=== PATIENT | female | born 1945 | race Caucasian/White ===

== ENCOUNTER 2020-12-08 00:03 | Emergency (ER) | payer MEDICARE, SELFPAY ==
--- NOTE | ~2020-12-08 | XR_ITS ---
EXAMINATION: XR HIP, LEFT CLINICAL INFORMATION: Fall with pain COMPARISON: None TECHNIQUE: Two views of the left hip. Frontal view of the pelvis. FINDINGS: There is no fracture or dislocation. The hips are well aligned. Mild degenerative changes of the hips with subchondral sclerosis present. The pelvic rim is intact. The sacroiliac joints and pubic symphysis are intact. XR/XR hip LT w PEL1V IMPRESSION: No fracture or malalignment.
--- NOTE | ~2020-12-08 | CT_ITS ---
EXAMINATION: CT LUMBAR SPINE WITHOUT CONTRAST CT SACRUM WITHOUT CONTRAST CLINICAL INFORMATION: Fall with pain COMPARISON: Radiograph from today TECHNIQUE: Multidetector volumetric imaging of the lumbar spine and sacrum is performed without IV contrast. Coronal and sagittal reformatted images are obtained and reviewed. This CT examination was performed using dose optimization techniques as appropriate, variously including the following: *Automated exposure control *Adjustment of mA and/or kV according to patient size (this includes techniques or standardized protocols for targeted exams where dose is matched to indication/reason for exam; i.e. extremities or head) *Use of iterative reconstruction technique DLP; 333 mGy-cm FINDINGS: Osteopenia. There is a nondisplaced right sacral fracture. This spans through the S2 level. The sacroiliac joints are symmetric. Vertebral body height maintained. Grade 1 anterolisthesis of L4 on L5 appearing degenerative. Facet arthropathy throughout. Mild L4-L5 disc space narrowing. Tiny multilevel endplate osteophytes. No acute fracture of the lumbar spine. No acute abnormality of the visualized intra-abdominal and intrapelvic structures. CT/CT lumbar spine wo con IMPRESSION: Nondisplaced right sacral fracture through the S2 level. Mild degenerative changes of the lumbar spine.
--- NOTE | ~2020-12-08 | CT_ITS ---
EXAMINATION: CT CHEST WITHOUT CONTRAST CLINICAL INFORMATION: Fall with pain COMPARISON: None TECHNIQUE: Multidetector volumetric CT imaging of the chest was done. Axial MIP volume rendering provided. Sagittal and coronal reformatted images were obtained. This CT examination was performed using dose optimization techniques as appropriate, variously including the following: *Automated exposure control *Adjustment of mA and/or kV according to patient size (this includes techniques or standardized protocols for targeted exams where dose is matched to indication/reason for exam; i.e. extremities or head) *Use of iterative reconstruction technique DLP: 150 mGy-cm FINDINGS: STAPLE SIDE LASTER: Unremarkable. LUNGS: The central airways are patent. Mild centrilobular emphysema. Pleural thickening/scarring at the lung apices. Mild bronchiectasis of the lower lobes. No bronchial wall thickening or filling defect. No dense consolidation. No pneumothorax. MEDIASTINUM: Normal heart size. No pericardial effusion. No mediastinal lymphadenopathy. The thyroid gland is unremarkable. PLEURA: There is no pleural effusion. No pleural mass or thickening. AXILLA: No lymphadenopathy. UPPER ABDOMEN: Hypoattenuating lesions are seen in the kidneys likely representing simple cysts. No follow-up imaging recommended. OSSEOUS STRUCTURES: No acute or suspicious osseous abnormality. Vertebral body height and alignment is maintained. Disc spaces are maintained. The ribs are intact. CT/CT chest wo con IMPRESSION: No acute traumatic findings of the chest. Mild chronic change of the lungs.
--- NOTE | ~2020-12-08 | CT_ITS ---
EXAMINATION: CT HEAD WITHOUT CONTRAST CLINICAL INFORMATION: Fall. COMPARISON: None TECHNIQUE: Contiguous axial imaging was performed from the skull base to vertex without intravenous administration of contrast. This CT examination was performed using dose optimization techniques as appropriate, variously including the following: *Automated exposure control *Adjustment of mA and/or kV according to patient size (this includes techniques or standardized protocols for targeted exams where dose is matched to indication/reason for exam; i.e. extremities or head) *Use of iterative reconstruction technique DLP: 623 mGy-cm FINDINGS: There is no evidence of acute intracranial hemorrhage or edematous territorial infarction. Scattered hypoattenuation in the periventricular and deep white matter are consistent with moderate microangiopathy. [place]-white matter differentiation is preserved. Proportional prominence of the ventricles and sulcal spaces. No evidence for obstructive hydrocephalus. No abnormal mass effect or midline shift. No extra-axial fluid collections. No acute soft tissue or osseous abnormalities. The mastoid air cells and paranasal sinuses are clear. CT/CT head/brain wo con IMPRESSION: No evidence of acute intracranial hemorrhage or edematous territorial infarction.
--- NOTE | ~2020-12-08 | CT_ITS ---
EXAMINATION: CT LUMBAR SPINE WITHOUT CONTRAST CT SACRUM WITHOUT CONTRAST CLINICAL INFORMATION: Fall with pain COMPARISON: Radiograph from today TECHNIQUE: Multidetector volumetric imaging of the lumbar spine and sacrum is performed without IV contrast. Coronal and sagittal reformatted images are obtained and reviewed. This CT examination was performed using dose optimization techniques as appropriate, variously including the following: *Automated exposure control *Adjustment of mA and/or kV according to patient size (this includes techniques or standardized protocols for targeted exams where dose is matched to indication/reason for exam; i.e. extremities or head) *Use of iterative reconstruction technique DLP; 333 mGy-cm FINDINGS: Osteopenia. There is a nondisplaced right sacral fracture. This spans through the S2 level. The sacroiliac joints are symmetric. Vertebral body height maintained. Grade 1 anterolisthesis of L4 on L5 appearing degenerative. Facet arthropathy throughout. Mild L4-L5 disc space narrowing. Tiny multilevel endplate osteophytes. No acute fracture of the lumbar spine. No acute abnormality of the visualized intra-abdominal and intrapelvic structures. CT/CT sacrum IMPRESSION: Nondisplaced right sacral fracture through the S2 level. Mild degenerative changes of the lumbar spine.
--- NOTE | 2020-12-08 00:12 | ECG_ITS ---
Test Reason : FALL Blood Pressure : / mmHG Vent. Rate : 095 BPM Atrial Rate : 095 BPM P-R Int : 148 ms QRS Dur : 072 ms QT Int : 354 ms P-R-T Axes : 083 059 054 degrees QTc Int : 444 ms Normal sinus rhythm Minimal voltage criteria for LVH, may be normal variant Borderline ECG No previous ECGs available Referred By: Mary Rice Electronically Signed By:SARAVANAN SOSA
[2020-12-08 00:14] VITALS: BP 145/59; BP 157/69; PULSE 100; PULSE 81; RESP 18; TEMP 35.9; O2SAT 96; O2SAT 99; BMI 19.8
--- NOTE | 2020-12-08 00:56 | ED_ITS ---
HPI - Fall General Chief Complaint: Fall Stated Complaint: fall (-LOC/thinners) Time Seen by Provider: 12/08/20 00:11 Source: patient Mode of arrival: ambulatory Limitations: physical limitation (Walker) History of Present Illness HPI Narrative: 75-year-old female with history of cerebral palsy and currently on anticoagulation who states that she sustained a mechanical fall earlier this evening with she was at her kitchen sink and the walker kept moving causing her to turn and slide down her back against the counter falling on her buttocks. She denies any head strike or loss of consciousness and denies any recent fever, chills, shortness of breath, chest pain/palpitations, urinary pain/burning/frequency. Patient states that she attempted to get up but was having some difficulty and activated her Life Alert. She does describe some sacral and left tuberosity pain. Related Data Allergies Allergy/AdvReac Type Severity Reaction Status Date / Time No Known Allergies Allergy Unverified 12/08/20 00:11 Review of Systems Review of Systems: Pertinent positives and negatives as stated in HPI 10 point review of systems is otherwise negative. [facility] Past Medical History Source: nursing notes reviewed Medical History Cerebral palsy Social History Social History Alcohol intake: never Patient Tobacco Use Status: Never used Tobacco Use of substances other than those prescribed or required for medical reasons: No Advance Directives: No Physical Exam Vital Signs: Vital Signs: Last Vital Signs Temp 96.7 F L 12/08/20 00:14 Pulse 100 12/08/20 00:14 Resp 18 12/08/20 00:14 BP 157/69 H 12/08/20 00:14 Pulse Ox 99 12/08/20 00:14 Body Mass Index 19.8 VITAL SIGNS: Reviewed. GENERAL: Elderly, cachectic, in no acute distress. HEAD: Normocephalic/atraumatic, EYES: PERRLA, EOMI EARS: Ext canals without abnormality NOSE: Nares patent bilateral OROPHARYNX: no oral lesions noted, posterior pharynx clear and non-erythematous without noted tonsillar enlargement/erythema/exudates NECK: Supple, no adenopathy, no midline cervical spine tenderness on palpation. LUNGS: Normal breath sounds. No adventitious sounds or accessory muscle use. SpO2<99> CARDIOVASCULAR: Regular rate and rhythm without noted murmurs, no JVD or lower extremity edema. ABDOMEN: Soft, non-tender, non-distended with bowel sounds, pelvis stable BACK: No step-offs noted and no tenderness on palpation down midline vertebra MUSCULOSKELETAL: No tenderness, deformities, or effusions noted on gross inspec tion. EXTREMITIES: No cyanosis, clubbing or edema, slight redness without deformity or edema to bilateral knees. SKIN: Inspection of the skin reveals no rashes NEUROLOGIC: Alert and oriented x 4. Strength and sensation to light touch were grossly intact x 4. Course Course Course Narrative: 75-year-old female with history and clinical presentation consistent with mechanical fall but will evaluate for any etiology of infection or anemia. Review of all investigations negative for acute findings and the noted mild leukocytosis consistent with stress response. Patient informed of all results a nd findings and discharged home in stable condition with instructions follow-up with primary care provider on Wednesday morning. MDM - Fall Lab Data Result diagrams: 12/08/20 00:48 12/08/20 00:48 Labs: Lab Results 12/08/20 12/08/20 12/08/20 Range/Units 00:48 00:48 00:48 WBC 11.2 H (4.8-10.8) X10*3/uL RBC 4.23 (4.20-5.50) X10*6/uL Hgb 12.4 (12.0-16.0) g/dl Hct 37.6 (37-47) % MCV 88.9 (80-98) fL MCH 29.3 (27.0-33.0) pg MCHC 33.0 (31.0-35.0) g/dl RDW 13.8 (11.0-16.0) % Plt Count 157 L (160-400) X10*3/uL MPV 10.8 (9.4-12.3) fL Immature Gran % (Auto) 0.5 H (0.0-0.4) % Neut % (Auto) 85.5 H (45-73) % Lymph % (Auto) 6.2 L (20-40) % [place] % (Auto) 7.7 (2-11) % Eos % (Auto) 0.0 (0-4) % Baso % (Auto) 0.1 (0-2) % Lymph # (Auto) 0.7 L (1.2-4.9) X10*3/uL [place] # (Auto) 0.9 (0.1-1.2) X10*3/uL Eos # (Auto) 0.0 (0.0-0.4) X10*3/uL Baso # (Auto) 0.0 (0.0-0.2) X10*3/uL Abs Immat Gran (auto) 0.06 H (0.00-0.03) X10*3/uL Absolute Neuts (auto) 9.6 H (2.0-8.3) X10*3/uL Absolute Nucleated RBC 0.000 (0.0-0.012) X10*3/uL Nucleated RBC % (auto) 0.0 (0.0-0.2) /100WBC PT 11.6 (9.9-13.0) SEC INR 1.0 (0.9-1.1) Sodium 141 (135-145) mmol/L Potassium 3.6 (3.3-5.1) mmol/L Chloride 106 (96-108) mmol/L Carbon Dioxide 27 (22-29) mmol/L Anion Gap 12 (12-20) BUN 23 H (9-16) mg/dL Creatinine 0.79 (0.5-1.4) mg/dL Estim Creat Clear Calc 45.5 Estimated GFR > 60 Random Glucose 126 H (60-115) mg/dL Calcium 9.1 (8.4-10.2) mg/dL Total Bilirubin 0.5 (0.0-1.0) mg/dL AST 24 (5-31) U/L ALT 23 (0-31) U/L Alkaline Phosphatase 75 (39-117) U/L Total Protein 6.4 L (6.5-8.0) g/dL Albumin 4.0 (3.5-5.0) g/dL Urine Color Urine Appearance Urine pH (5.0-8.0) Ur Specific [place] (1.005-1.025) Urine Protein (NEG-TRACE) MG/DL Urine Glucose (UA) (NEG) MG/DL Urine Ketones (NEG) MG/DL Urine Blood (NEG) Urine Nitrite (NEG) Ur Leukocyte Esterase (NEG) Urine RBC (0) /HPF Urine WBC (0-4) /HPF Ur Squamous Epith Cells /LPF Urine Bacteria /LPF 12/08/20 Range/Units 01:33 WBC (4.8-10.8) X10*3/uL RBC (4.20-5.50) X10*6/uL Hgb (12.0-16.0) g/dl Hct (37-47) % MCV (80-98) fL MCH (27.0-33.0) pg MCHC (31.0-35.0) g/dl RDW (11.0-16.0) % Plt Count (160-400) X10*3/uL MPV (9.4-12.3) fL Immature Gran % (Auto) (0.0-0.4) % Neut % (Auto) (45-73) % Lymph % (Auto) (20-40) % [place] % (Auto) (2-11) % Eos % (Auto) (0-4) % Baso % (Auto) (0-2) % Lymph # (Auto) (1.2-4.9) X10*3/uL [place] # (Auto) (0.1-1.2) X10*3/uL Eos # (Auto) (0.0-0.4) X10*3/uL Baso # (Auto) (0.0-0.2) X10*3/uL Abs Immat Gran (auto) (0.00-0.03) X10*3/uL Absolute Neuts (auto) (2.0-8.3) X10*3/uL Absolute Nucleated RBC (0.0-0.012) X10*3/uL Nucleated RBC % (auto) (0.0-0.2) /100WBC PT (9.9-13.0) SEC INR (0.9-1.1) Sodium (135-145) mmol/L Potassium (3.3-5.1) mmol/L Chloride (96-108) mmol/L Carbon Dioxide (22-29) mmol/L Anion Gap (12-20) BUN (9-16) mg/dL Creatinine (0.5-1.4) mg/dL Estim Creat Clear Calc Estimated GFR Random Glucose (60-115) mg/dL Calcium (8.4-10.2) mg/dL Total Bilirubin (0.0-1.0) mg/dL AST (5-31) U/L ALT (0-31) U/L Alkaline Phosphatase (39-117) U/L Total Protein (6.5-8.0) g/dL Albumin (3.5-5.0) g/dL Urine Color YELLOW Urine Appearance CLEAR Urine pH 7.0 (5.0-8.0) Ur Specific [place] 1.015 (1.005-1.025) Urine Protein 1+ H (NEG-TRACE) MG/DL Urine Glucose (UA) NEG (NEG) MG/DL Urine Ketones 5 (NEG) MG/DL Urine Blood NEG (NEG) Urine Nitrite NEG (NEG) Ur Leukocyte Esterase NEG (NEG) Urine RBC 1-4 (0) /HPF Urine WBC 1-4 (0-4) /HPF Ur Squamous Epith Cells 1+ /LPF Urine Bacteria 1+ /LPF ECG Data Attestation: I personally reviewed and interpreted this ECG as follows: Prior ECG tracings: not available for review Interpretation: Normal sinus rhythm, HR-95, no STEMI, [place]/QRS/QTC are within normal limits. Discharge Plan Discharge Clinical Impression: Accident due to mechanical fall without injury Patient Disposition: Home, Self-Care Instructions: Fall Prevention for Older Adults (ED) Additional Instructions: 1. Resume all home medications as prescribed. 2. Increase water intake. 3. Follow-up with your primary care provider on Wednesday morning for re-evaluation and further outpatient management. Return to the ER for acute worsening of symptoms.
[2020-12-08 01:02] LABS: MANUAL DIFF FLAG NO
[2020-12-08 01:03] LABS: Basophils Percent Auto 0.1 % (0-2); Hematocrit 37.6 % (37-47); Hemoglobin 12.4 g/dl (12.0-16.0); Imm Gran Abs Auto 0.06 X10*3/uL (0.00-0.03); Imm Gran Pct Auto 0.5 % (0.0-0.4); Lymphocytes Absolute Auto 0.7 X10*3/uL (1.2-4.9); Lymphocytes Percent Auto 6.2 % (20-40); Mean Corpuscular Hemoglobin 29.3 pg (27.0-33.0); Mean Corpuscular Volume 88.9 fL (80-98); Mean Platelet Volume 10.8 fL (9.4-12.3); Monocytes Absolute Auto 0.9 X10*3/uL (0.1-1.2); Monocytes Percent Auto 7.7 % (2-11); Neutrophils Absolute Auto 9.6 X10*3/uL (2.0-8.3); Neutrophils Percent Auto 85.5 % (45-73); Platelet Count 157 X10*3/uL (160-400); Red Blood Count 4.23 X10*6/uL (4.20-5.50); Red Cell Distribution Width 13.8 % (11.0-16.0); White Blood Count 11.2 X10*3/uL (4.8-10.8)
[2020-12-08 01:08] LABS: Prothrombin Time 11.6 SEC (9.9-13.0)
[2020-12-08 01:26] LABS: Alanine Aminotransferase 23 U/L (0-31); Alkaline Phosphatase 75 U/L (39-117); Anion Gap 12 (12-20); Aspartate Amino Transferase 24 U/L (5-31); Bilirubin Total 0.5 mg/dL (0.0-1.0); Blood Urea Nitrogen 23 mg/dL (9-16); Calcium 9.1 mg/dL (8.4-10.2); Carbon Dioxide 27 mmol/L (22-29); Chloride 106 mmol/L (96-108); Creatinine Clr Calc Pharmacy 45.5; Estimated Glomerular Filt Rate > 60; Glucose Random 126 mg/dL (60-115); Potassium 3.6 mmol/L (3.3-5.1); Sodium 141 mmol/L (135-145); Total Protein 6.4 g/dL (6.5-8.0)
[2020-12-08 01:38] LABS: Appearance Urine CLEAR; Color Urine YELLOW; Glucose Urine UA NEG (NEG); Leukocyte Esterase Urine NEG (NEG); Nitrite Urine NEG (NEG); Specific Gravity - Urine 1.015 (1.005-1.025); UACC Culture Trigger NO; Urine Blood NEG (NEG); Urine Ketones 5 MG/DL (NEG); Urine Protein 1+ MG/DL (NEG-TRACE)
[2020-12-08 01:46] LABS: Bacteria Urine 1+ /LPF; Squamous Epithelial Cell Urine 1+ /LPF
[2020-12-08 06:30] LABS: COVID-19 Test Negative (Negative); IDNOW Serial# 9DD0AD1C
[2020-12-08] MEDS: Acetaminophen 325 MG TABLET 975 MG PO (06:30)
[2020-12-08] MEDS: Ibuprofen 400 MG TABLET PO (06:30)
[2020-12-08 07:54] VITALS: BP 138/53; PULSE 83; RESP 18; O2SAT 97
--- NOTE | 2020-12-08 07:56 | PC.NURSE ---
PT MOVED FROM 13H TO ED 21 DUE TO NEEDING PT EVAL AND CASEMANAGEMENT FOR REHAB PLACEMENT DUE TO SACRAL FRACTURE
[2020-12-08 11:18] VITALS: BP 161/55; PULSE 75; O2SAT 96
--- NOTE | 2020-12-08 12:11 | PC.NURSE ---
attempted to complete med rec on PT, she reports she does not take any regular medications at home
--- NOTE | 2020-12-08 12:31 | MHC.CM.ED ---
Received consult for assessment of d/c needs: pt presented from home with falls: feels pt is weak and unsteady: Pt very vague, slow to answer, forgets information and seems to have delays with recall ability: She states she resides at the [facility] and is Independent with care needs. She uses a walker and has transportation provided by the residence. She notes her PCP is someone new that replaced Dr. Neri but hasn't seen anyone in over a year. She acknowledged having a community facilitator named Susi but couldn't recall her last name, contact information or agency affiliation. Pt does not have any services but does have someone who assists her with laundry. She could not identify a next of contact only to say it's a sister who lives on the same wing Pt does not have a HCP and didn't wish to complete one. She also stated she was not COVID vaccinated d/t adverse reactions to steroids. NKA is listed on her EMR. Pt very weakened: had difficulty rolling on side to use the bedpan and complained of back discomfort and overall weakness. She is receptive to waiting until Wednesday for a PT eval but is unsure if she would agree to STR. I'd rather not, I have a nice place. Call placed to [facility] at [phone] : left VM for immigration manager to f/u on 12/09: ED CM to await PT eval for assistance with determining physical abilities/safety for return to home: ? needing STR however, without vaccination or HCP/NOK, this will be a difficult endeavor. Will defer STR referrals until more information can be obtained either from Susi, her mysterious sister neighbor, or through PT eval.
--- NOTE | 2020-12-08 21:55 | PC.NURSE ---
pt incontinent of urine and stool after being placed on a bed [place]. pt cleaned and changed into maicol [facility]
[2020-12-09] VITALS: BP 180/70; PULSE 87; RESP 16; TEMP 36.8; O2SAT 100
[2020-12-09 00:04] VITALS: BP 180/70; PULSE 84; RESP 16; TEMP 36.8
[2020-12-09 00:06] VITALS: BP 180/70; PULSE 84; RESP 16; TEMP 36.8
[2020-12-09 05:37] VITALS: BP 182/77; PULSE 87; RESP 18; O2SAT 96
[2020-12-09] MEDS: oxyCODONE HCl Immed Release 5 MG TABLET PO (07:16)
[2020-12-09 07:32] VITALS: PULSE 87; O2SAT 96
--- NOTE | 2020-12-09 07:42 | PC.NURSE ---
pt unable to get up with PT. crying out in pain when PT get her to the edge of the bed. Pt back in bed laying down, head of bed down. A&Ox2.
--- NOTE | 2020-12-09 09:29 | PC.NURSE ---
pt attempting to get out of stretcher, stating i need to stand up . pt reminded she cannot stand up even with PT helping. Pt moved into a recliner with two assist. pt slightly to her left side. sitter in reach.
--- NOTE | 2020-12-09 09:49 | MHC.CM.ED ---
Addendum entered by Nikia Carrero 12/09/20 14:43: Received telephone call from [employer] le[employer] property manager. Patient lives in senior independent living. They have no medical or contact information for their residents. Original Note: Patient remains in ER. Physical therapy eval completed. Short term rehab is recommended. Since patient has not received any Covid vaccines, she will be difficult to place. Referral broadcasted within 20 miles of her residence. Continue to monitor for d/c needs.
--- NOTE | 2020-12-09 14:04 | MHC.CM.ED ---
[facility] is only facility to offer a bed. Patient was hoping to go home but is agreeable to accept bed at [facility] at this time. [facility] will try to obtain insurance auth. Patient's PCP was Dr Gross. Her new PCP is Dr Quiana Pineda. She had an appointment on 12/[address] Pineda's office has no HCP or demographic information on her. Will need a HCP in order to go to [facility]. Continue to monitor for d/c needs.
--- NOTE | 2020-12-09 14:47 | MHC.CM.ED ---
Addendum entered by Nikia Carrero 12/09/20 15:39: Received telephone call from Liza. Patient's emergency contact is Sister Edyta Nunez. She is patient's neighbor and can be reached via telephone at [phone]. Spoke with Sister Edyta. Updated i. Sister Edyta thinks she is patient's HCP, but doesn't know where a copy of it would be. Original Note: Patient is active with [facility]. Susi is the counseling case manager. Susi is not in the office today. Left a message for Liza at [facility], requesting a return telephone call.
[2020-12-09 16:34] VITALS: BP 180/70; PULSE 78; RESP 14; O2SAT 95
--- NOTE | 2020-12-09 17:11 | MHC.CM.ED ---
Bladimir at [facility] has obtained authorization. Pt agreeable to D/C . Ambulance booked for 5:30. Script for narcotic given to RN. RN and MD aware. HCP completed, reviewed and signed. HCP Sister Edyta Nunez ([phone]). Copies given and uploaded into [facility] and [facility]. CM to follow for d/c needs.
== END 2020-12-09 18:39 | disposition home or self-care (01) ==
PROVIDERS: Emergency Provider Student in an Organized Health Care Education/Training Program
DX: S39.92XA Unspecified injury of lower back, initial encounter (principal); G44.309 Post-traumatic headache, unspecified, not intractable; M54.6 Pain in thoracic spine; R10.2 Pelvic and perineal pain; M25.552 Pain in left hip; W01.0XXA Fall on same level from slipping, tripping and stumbling without subsequent striking against object, initial encounter; Y93.9 Activity, unspecified; Y92.9 Unspecified place or not applicable; Y99.9 Unspecified external cause status; Z20.822 Contact with and (suspected) exposure to COVID-19; Z79.899 Other long term (current) drug therapy
CPT/HCPCS: 36415; 70450; 71250; 72131; 72192; 73502; 80053; 81001; 85025; 85610; 87635; 93005; 97162; 99285

== ENCOUNTER 2021-01-16 08:35 | Outpatient (REF) | payer MEDICARE, SELFPAY | END 2021-01-16 08:36 | disposition home or self-care (01) | LOC: HO.HOSX 08:35 | PROVIDERS: Visit Provider Physician Assistant | DX: Z13.89 Encounter for screening for other disorder (principal) ==

== ENCOUNTER 2021-08-28 09:03 | Emergency (ER) | payer MEDICARE, SELFPAY ==
--- NOTE | ~2021-08-28 | CT_ITS ---
EXAMINATION: CT HEAD WITHOUT CONTRAST CLINICAL INFORMATION: Altered mental status. COMPARISON: Head CT scan dated 12/08/2020. TECHNIQUE: Contiguous axial imaging was performed from the skull base to vertex without intravenous administration of contrast. Coronal and sagittal reformatted images were obtained. This CT examination was performed using dose optimization techniques as appropriate, variously including the following: *Automated exposure control *Adjustment of mA and/or kV according to patient size (this includes techniques or standardized protocols for targeted exams where dose is matched to indication/reason for exam; i.e. extremities or head) *Use of iterative reconstruction technique DLP: 570 mGy-cm FINDINGS: There is mild widening of the cortical sulci and associated ventriculomegaly. The lateral ventricles are symmetrical. The third and fourth ventricles are in their normal midline position. The basilar and prepontine cisterns are unremarkable. There is no acute intra or extracerebral abnormality. There is no mass effect or midline shift. Sections through the bony calvarium are unremarkable. The orbits are intact. The paranasal sinuses are clear. The mastoid air cells are clear. Moderate mid nasal septal deviation with moderate apical spur significant narrowing the nasal canal the level without significant change. CT/CT head/brain wo con IMPRESSION: No acute intracranial pathology.
--- NOTE | ~2021-08-28 | XR_ITS ---
EXAMINATION: XR CHEST CLINICAL INFORMATION: Altered mental status and weakness COMPARISON: CT chest 12/08/2020 TECHNIQUE: 2 views of the chest were obtained. FINDINGS: Lungs are hyperinflated consistent with emphysematous changes that were better characterized on the prior chest CT. Heart size normal. No infiltrates, effusions or lung masses are seen. XR/XR chest 2V IMPRESSION: COPD. No acute intrathoracic disease
--- NOTE | 2021-08-28 09:15 | ECG_ITS ---
Test Reason : ams Blood Pressure : / mmHG Vent. Rate : 087 BPM Atrial Rate : 087 BPM P-R Int : 148 ms QRS Dur : 076 ms QT Int : 380 ms P-R-T Axes : 085 073 070 degrees QTc Int : 457 ms Normal sinus rhythm Minimal voltage criteria for LVH, may be normal variant ( Sokolow-Gloria ) Septal infarct , age undetermined Abnormal ECG When compared with ECG of 08-DEC-2020 00:36, Septal infarct is now Present Referred By: Carolina Miranda Electronically Signed By:NANETTE AN MD
--- NOTE | 2021-08-28 09:15 | ED.GENADULT ---
HPI - General Adult General Chief complaint: Altered Mental Status <EDITH Francisco Last Filed: 08/28/21 15:12> Stated complaint: MENTAL STATUS CHANGES <EDITH Francisco Last Filed: 08/28/21 15:12> Time Seen by Provider: 08/28/21 09:15 <EDITH Francisco Last Filed: 08/28/21 15:12> Source: patient and EMS <EDITH Francisco Last Filed: 08/28/21 15:12> Mode of arrival: EMS <EDITH Francisco Last Filed: 08/28/21 15:12> Limitations: altered mental status <EDITH Francisco Last Filed: 08/28/21 15:12> History of Present Illness HPI narrative: Patient is a 76 year old female presenting to the emergency department today with altered mental status. EMS states that the patient had a mechanical fall this morning and was seen at [facility] for that and discharged back home. Patient's visiting nurse statse that the patient is much more confused and she does not believe the patient to be safe at home alone anymore. Patient denies any dizziness, lightheadedness, abdominal pain, nausea, vomiting, fever, chills, blurry vision, double vision, loss of vision, chest pain, difficulty breathing, shortness of breath, back pain, night sweats, pain with urination, increased urinary frequency, increased urinary urgency, blood in her urine or stool, syncope or a near syncopal episode, bowel incontinence, bladder incontinence, bowel retention, bladder retention, or any other complaints at this time. <EDITH Francisco Last Filed: 08/28/21 15:12> Onset (ago): hour(s) <EDITH Francisco Last Filed: 08/28/21 15:12> Severity: mild <EDITH Francisco Last Filed: 08/28/21 15:12> Relieving factors: none <EDITH Francisco Last Filed: 08/28/21 15:12> Exacerbating factors: none <EDITH Francisco Last Filed: 08/28/21 15:12> Associated symptoms: denies other symptoms <EDITH Francisco Last Filed: 08/28/21 15:12> Treatments prior to arrival: none <EDITH Francisco Last Filed: 08/28/21 15:12> Related Data Home medications: Previous Rx's Medication Instructions Recorded oxycodone 5 mg tablet 5 mg PO Q6H PRN pain #14 tabs 12/09/20 <EDITH Francisco Last Filed: 08/28/21 15:12> Allergies/adverse reactions: Allergies Allergy/AdvReac Type Severity Reaction Status Date / Time No Known Allergies Allergy Unverified 12/08/20 00:11 <EDITH Francisco - Last Filed: 08/28/21 15:12> Review of Systems Constitutional: Constitutional: Reports no additional constitutional complaints, Denies chills, Denies fever(s) and Denies night sweats <EDITH Francisco - Last Filed: 08/28/21 15:12> Eyes: Eyes: Reports no additional eye complaints, Denies blurry vision, Denies change in vision, Denies diplopia, Denies eye discharge, Denies loss of vision and Denies eye pain <EDITH Francisco - Last Filed: 08/28/21 15:12> ENT: Denies dizziness <EDITH Francisco - Last Filed: 08/28/21 15:12> Cardiovascular: Cardiovascular: Reports no additional cardiovascular complaints, Denies chest pain, Denies lightheadedness, Denies Loss of Consciousness and Denies dyspnea <EDITH Francisco - Last Filed: 08/28/21 15:12> Respiratory: Respiratory: Reports no additional respiratory complaints and Denies dyspnea <EDITH Francisco - Last Filed: 08/28/21 15:12> Gastrointestinal: Gastrointestinal: Reports no additional gastrointestinal complaints, Denies abdominal pain, Denies melena, Denies hematochezia, Denies change in bowel habits and Denies change in stool character <EDITH Francisco - Last Filed: 08/28/21 15:12> Genitourinary: Genitourinary: Denies hematuria, Denies urinary frequency, Denies dysuria, Denies urinary incontinence, Denies urinary hesitancy and Denies urinary urgency <EDITH Francisco Last Filed: 08/28/21 15:12> Musculoskeletal: Musculoskeletal: Reports no additional musculoskeletal complaints, Denies numbness and Denies tingling <EDITH Francisco - Last Filed: 08/28/21 15:12> Neurologic: Reports confusion, Denies dizziness, Denies loss of vision, Denies numbness and Denies tingling <EDITH Francisco - Last Filed: 08/28/21 15:12> Psychiatric: Psychiatric: Reports no additional psychiatric complaints and Reports confusion <EDITH Francisco - Last Filed: 08/28/21 15:12> Endocrine: Endocrine: Reports no additional endocrine complaints <EDITH Francisco - Last Filed: 08/28/21 15:12> Hematologic/Lymphatic: Hematologic/Lymphatic: Reports no additional hematologic/lymphatic complaints <EDITH Francisco - Last Filed: 08/28/21 15:12> Allergic/Immunologic: Allergic/Immunologic: Reports no additional allergic/immunologic complaints <EDITH Francisco - Last Filed: 08/28/21 15:12> PMFSH Past Medical History Attestation statement: The following information was validated with the patient. <EDITH Francisco - Last Filed: 08/28/21 15:12> Source: old records reviewed <EDITH Francisco - Last Filed: 08/28/21 15:12> Medical History: Medical History Cerebral palsy <EDITH Francisco - Last Filed: 08/28/21 15:12> Social History Social History: Social History Alcohol intake: never Patient Tobacco Use Status: Never used Tobacco Use of substances other than those prescribed or required for medical reasons: No Advance Directives: Yes Advance Directives on File: Yes Advance Directives Date on File: 12/10/20 <EDITH Francisco - Last Filed: 08/28/21 15:12> Physical Exam ED Vital Signs: Vital Signs - 24 hr 08/28/21 11:47 08/28/21 15:24 08/28/21 19:45 Pulse Rate 100 79 86 Respiratory Rate 14 18 Blood Pressure 152/66 H 177/64 H 130/53 L Pulse Oximetry 100 100 98 Oxygen Delivery Method Room Air Room Air Room Air 08/29/21 03:19 08/29/21 07:13 Pulse Rate 71 73 Respiratory Rate 16 16 Blood Pressure 123/66 174/62 H Pulse Oximetry 98 97 Oxygen Delivery Method Room Air Room Air BMI result Body Mass Index 15.5 <EDITH Francisco Last Filed: 08/28/21 15:12> Vital Signs - 24 hr 08/28/21 11:47 08/28/21 15:24 08/28/21 19:45 Pulse Rate 100 79 86 Respiratory Rate 14 18 Blood Pressure 152/66 H 177/64 H 130/53 L Pulse Oximetry 100 100 98 Oxygen Delivery Method Room Air Room Air Room Air 08/29/21 03:19 08/29/21 07:13 Pulse Rate 71 73 Respiratory Rate 16 16 Blood Pressure 123/66 174/62 H Pulse Oximetry 98 97 Oxygen Delivery Method Room Air Room Air BMI result Body Mass Index 15.5 <EDITH Prabhakar Last Filed: 08/28/21 17:57> Vital Signs - 24 hr 08/28/21 11:47 08/28/21 15:24 08/28/21 19:45 Pulse Rate 100 79 86 Respiratory Rate 14 18 Blood Pressure 152/66 H 177/64 H 130/53 L Pulse Oximetry 100 100 98 Oxygen Delivery Method Room Air Room Air Room Air 08/29/21 03:19 08/29/21 07:13 Pulse Rate 71 73 Respiratory Rate 16 16 Blood Pressure 123/66 174/62 H Pulse Oximetry 98 97 Oxygen Delivery Method Room Air Room Air BMI result Body Mass Index 15.5 <EDITH Willis Last Filed: 08/29/21 09:59> Const General: confusion <EDITH Francisco Last Filed: 08/28/21 15:12> Nutritional Appearance: well nourished <EDITH Francisco Last Filed: 08/28/21 15:12> Orientation/consciousness: confusion <EDITH Francisco Last Filed: 08/28/21 15:12> Limitations: no limitations <EDITH Francisco Last Filed: 08/28/21 15:12> HENMT Head: Yes normal to inspection and Yes atraumatic <EDITH Francisco Last Filed: 08/28/21 15:12> Ears: hearing grossly normal bilaterally and external ears normal <Carolina Miranda [facility] Last Filed: 08/28/21 15:12> General nose exam: Normal external nose present, no nasal discharge noted and no epistaxis <Carolina Miranda [facility] Last Filed: 08/28/21 15:12> Face and sinus: Yes normal facial exam, No abrasion and No laceration <Carolina Miranda [facility] Last Filed: 08/28/21 15:12> Mouth: Normal oral and palatal mucosa present, no drooling and no muffled voice <Carolina Miranda [facility] Last Filed: 08/28/21 15:12> Eyes General: appearance normal, both eyes and all related structures <Carolina Miranda [facility] Last Filed: 08/28/21 15:12> Periorbital: periorbital findings normal <Carolina Miranda [facility] Last Filed: 08/28/21 15:12> Eyelids: Yes eyelids normal <Carolina Miranda [facility] Last Filed: 08/28/21 15:12> Conjunctivae: conjunctivae normal <Carolina Miranda [facility] Last Filed: 08/28/21 15:12> Pupils: Equal, round and reactive pupils present <Carolina Miranda [facility] Last Filed: 08/28/21 15:12> EOM: EOMs intact bilaterally <Carolina Miranda [facility] Last Filed: 08/28/21 15:12> Neck Neck: Yes normal visual inspection, Yes full ROM and Yes no lymphadenopathy <Carolina Miranda [facility] Last Filed: 08/28/21 15:12> Chest Chest palpation & inspection: normal inspection of the chest <Carolina Miranda [facility] Last Filed: 08/28/21 15:12> Resp Effort & Inspection: normal respiratory effort and able to speak in complete sentences <Carolina Miranda [facility] Last Filed: 08/28/21 15:12> Auscultation: clear to auscultation bilaterally <Carolina Miranda [facility] Last Filed: 08/28/21 15:12> Cardio Rate: regular rate <Carolina Sebastianad [facility] Last Filed: 08/28/21 15:12> Rhythm: regular rhythm <Carolina Sebastianad [place] - Last Filed: 08/28/21 15:12> GI Inspection: Yes normal to inspection <Carolina Miranda PA - Last Filed: 08/28/21 15:12> Neuro General: confusion <Carolina Miranda EDITH - Last Filed: 08/28/21 15:12> Cranial nerves: Yes Equal, round and reactive pupils present <Carolina Miranda EDITH - Last Filed: 08/28/21 15:12> Cognition (Neuro): normal cognition <Carolina Miranda EDITH - Last Filed: 08/28/21 15:12> Motor exam (neuro): 5/5 motor strength present throughout <Carolina Miranda PA - Last Filed: 08/28/21 15:12> Sensory Exam: Normal double simultaneous stimulation for sensation <Carolina Miranda EDITH - Last Filed: 08/28/21 15:12> Coordination: [id number] test normal <Carolina Miranda EDITH - Last Filed: 08/28/21 15:12> Extrem General: Yes normal to inspection, Yes full ROM and Yes capillary refill normal <Carolina Miranda EDITH - Last Filed: 08/28/21 15:12> Psych Appearance: grossly normal <Carolina Miranda EDITH - Last Filed: 08/28/21 15:12> Mental Status: mental status grossly normal <Carolina Miranda EDITH - Last Filed: 08/28/21 15:12> Affect: normal affect <Carolina Miranda EDITH - Last Filed: 08/28/21 15:12> Attitude: cooperative <Carolina Miranda EDITH - Last Filed: 08/28/21 15:12> Thought process: Normal thought process present <Carolina Miranda EDITH - Last Filed: 08/28/21 15:12> Thought content: Normal thought content present <Carolina MirandaEDITH - Last Filed: 08/28/21 15:12> Insight: Good insight present (Psych) <Carolina MirandaEDITH - Last Filed: 08/28/21 15:12> Course Reevaluation(s) Reevaluation #1: Patient's friend came to pick patient up tells me that at baseline patient is able to recognize her, she does not feel comfortable taking patient back home to independent living. This time patient is confused, trying to get up by herself, unsteady gait, she would benefit from physical therapy in case management evaluation for further management. At this time patient will be put into physician observation to allow more time to be evaluated by Physical therapy and Case Management. At time the observation was started patient common cooperative no acute distress with stable vitals will continue to monitor <EDITH Prabhakar - Last Filed: 08/28/21 17:57> Time: 17:56 <EDITH Prabhakar - Last Filed: 08/28/21 17:57> Reevaluation #2: Susi Tidwell: Physician observation continues, patient in no apparent distress, vitals have been stable, lungs clear to auscultation bilaterally, nonfocal neuro, heart rate regular, rhythm regular, abdomen soft nontender. Patient has a history of cerebral palsy and so is not vaccinated for COVID. Patient presented yesterday for altered mental status at home. Physical therapy recommended short-term rehab. Patient became more confused in the emergency room last night, but is clear today. Patient's healthcare proxy Isabella is here at bedside, tells me patient told her patient was feeling weak 2 weeks ago. Patient lives alone, and is having a hard time managing tasks of daily living Patient is alert and oriented to person and time, fluid speech, is not entirely sure which hospital this is. Patient does not want to go to [facility] rehab, [facility], she did not have a good experience there. Will continue to monitor, pending Case Management placement. Patient may be a difficult placement because she is not vaccinated due to her cerebral palsy <EDITH Willis - Last Filed: 08/29/21 09:59> Time: 09:56 <EDITH Willis - Last Filed: 08/29/21 09:59> Medical Decision Making MDM Narrative Medical decision making narrative: Patient is a 76 year old female presenting to the emergency department today with generalized weakness and altered mental status. Patient's physical exam showed a frail individual that was pleasantly confused. Patient's blood work was unremarkable. Patient's urine showed no acute process. Patient's EKG was unremarkable. Patient's chest x-ray and head CT showed no acute process. I explained my physical exam findings as well as all test results to the patient and the patient's friend. I answered all questions asked by the patient and the patient's friend. Case management arranged for the patient to have services in her assisted living facility and is to be discharged home with her friend. I stressed the importance of the patient taking her medication as prescribed. I stressed the importance of the patient following up with her primary care provider. I stressed the importance of the patient returning to the emergency department immediately if her symptoms were to worsen or if she were to develop any dizziness, shortness of breath, difficulty breathing, chest pain, blurry vision, loss of vision, nausea, vomiting, abdominal pain, fever, chills, back pain, or any other complaints. Patient and the patient's friend verbalized agreement and understanding with this treatment plan and discharge. <EDITH Francisco - Last Filed: 08/28/21 15:12> Differential Diagnosis Differential Diagnosis: weakness, deconditioning <EDITH Francisco - Last Filed: 08/28/21 15:12> Medical Records Medical records reviewed: Yes I reviewed the patient's medical records. <EDITH Francisco - Last Filed: 08/28/21 15:12> Lab Data Lab results reviewed: Yes I reviewed the patient's lab results. <EDITH Francisco - Last Filed: 08/28/21 15:12> Result diagrams: : 08/28/21 09:47 08/28/21 09:47 <EDITH Francisco - Last Filed: 08/28/21 15:12> Labs: Lab Results 08/28/21 08/28/21 08/28/21 Range/Units 09:47 09:47 09:47 WBC 8.7 (4.8-10.8) X10*3/uL RBC 4.50 (4.20-5.50) X10*6/uL Hgb 13.2 (12.0-16.0) g/dl Hct 40.2 (37.0-47.0) % MCV 89.3 (80.0-98.0) fL MCH 29.3 (27.0-33.0) pg MCHC 32.8 (31.0-35.0) g/dl RDW 14.1 (11.0-16.0) % Plt Count 189 (160-400) X10*3/uL MPV 10.4 (9.4-12.3) fL Immature Gran % (Auto) 0.3 (0.0-0.4) % Neut % (Auto) 80.8 H (45-73) % Lymph % (Auto) 10.0 L (20-40) % Hickman % (Auto) 7.8 (2-11) % Eos % (Auto) 0.8 (0-4) % Baso % (Auto) 0.3 (0-2) % Lymph # (Auto) 0.9 L (1.2-4.9) X10*3/uL Hickman # (Auto) 0.7 (0.1-1.2) X10*3/uL Eos # (Auto) 0.1 (0.0-0.4) X10*3/uL Baso # (Auto) 0.0 (0.0-0.2) X10*3/uL Abs Immat Gran (auto) 0.03 (0.00-0.03) X10*3/uL Absolute Neuts (auto) 7.0 (2.0-8.3) x10*3/uL Absolute Nucleated RBC 0.000 (0.0-0.012) X10*3/uL Nucleated RBC % (auto) 0.0 (0.0-0.2) /100WBC VBG pH (7.32-7.43) VBG pCO2 mmHg VBG pO2 mmHg VBG HCO3 (22-26) mmol/L VBG O2 Saturation % VBG Base Excess mmol/L Sodium 139 (135-145) mmol/L Potassium 3.8 (3.3-5.1) mmol/L Chloride 102 (96-108) mmol/L Carbon Dioxide 26 (22-29) mmol/L Anion Gap 15 (12-20) BUN 21 H (9-16) mg/dL Creatinine 0.89 (0.5-1.4) mg/dL Estim Creat Clear Calc 30.1 Estimated GFR > 60 Random Glucose 155 H (60-115) mg/dL Lactic Acid (0.5-2.0) mmol/L Calcium 9.3 (8.4-10.2) mg/dL Magnesium 2.2 (1.6-2.6) mg/dL Total Bilirubin 1.5 H (0.0-1.0) mg/dL AST 23 (5-31) U/L ALT 26 (0-31) U/L Alkaline Phosphatase 72 (39-117) U/L Troponin I High Sens < 3.5 (<3.5-17.0) ng/L B-Natriuretic Peptide 106 H (<100) pg/mL Total Protein 7.0 (6.5-8.0) g/dL Albumin 4.4 (3.5-5.0) g/dL Urine Color Urine Appearance Urine pH (5.0-8.0) Ur Specific [place] (1.005-1.025) Urine Protein (NEG-TRACE) MG/DL Urine Glucose (UA) (NEG) MG/DL Urine Ketones (NEG) MG/DL Urine Blood (NEG) Urine Nitrite (NEG) Ur Leukocyte Esterase (NEG) Urine RBC (0) /HPF Urine WBC (0-4) /HPF Ur Squamous Epith Cells /LPF Urine Bacteria /LPF Urine Mucus /LPF COVID-19 (JADE) (Negative) COVID-19 Clin Com Influenza Type A (JORGE) (Negative) Influenza Type B (JORGE) (Negative) Influenza A & B Note 08/28/21 08/28/21 08/28/21 Range/Units 09:47 09:47 09:47 WBC (4.8-10.8) X10*3/uL RBC (4.20-5.50) X10*6/uL Hgb (12.0-16.0) g/dl Hct (37.0-47.0) % MCV (80.0-98.0) fL MCH (27.0-33.0) pg MCHC (31.0-35.0) g/dl RDW (11.0-16.0) % Plt Count (160-400) X10*3/uL MPV (9.4-12.3) fL Immature Gran % (Auto) (0.0-0.4) % Neut % (Auto) (45-73) % Lymph % (Auto) (20-40) % Hickman % (Auto) (2-11) % Eos % (Auto) (0-4) % Baso % (Auto) (0-2) % Lymph # (Auto) (1.2-4.9) X10*3/uL Hickman # (Auto) (0.1-1.2) X10*3/uL Eos # (Auto) (0.0-0.4) X10*3/uL Baso # (Auto) (0.0-0.2) X10*3/uL Abs Immat Gran (auto) (0.00-0.03) X10*3/uL Absolute Neuts (auto) (2.0-8.3) x10*3/uL Absolute Nucleated RBC (0.0-0.012) X10*3/uL Nucleated RBC % (auto) (0.0-0.2) /100WBC VBG pH (7.32-7.43) VBG pCO2 mmHg VBG pO2 mmHg VBG HCO3 (22-26) mmol/L VBG O2 Saturation % VBG Base Excess mmol/L Sodium (135-145) mmol/L Potassium (3.3-5.1) mmol/L Chloride (96-108) mmol/L Carbon Dioxide (22-29) mmol/L Anion Gap (12-20) BUN (9-16) mg/dL Creatinine (0.5-1.4) mg/dL Estim Creat Clear Calc Estimated GFR Random Glucose (60-115) mg/dL Lactic Acid 1.5 (0.5-2.0) mmol/L Calcium (8.4-10.2) mg/dL Magnesium (1.6-2.6) mg/dL Total Bilirubin (0.0-1.0) mg/dL AST (5-31) U/L ALT (0-31) U/L Alkaline Phosphatase (39-117) U/L Troponin I High Sens (<3.5-17.0) ng/L B-Natriuretic Peptide (<100) pg/mL Total Protein (6.5-8.0) g/dL Albumin (3.5-5.0) g/dL Urine Color Urine Appearance Urine pH (5.0-8.0) Ur Specific [place] (1.005-1.025) Urine Protein (NEG-TRACE) MG/DL Urine Glucose (UA) (NEG) MG/DL Urine Ketones (NEG) MG/DL Urine Blood (NEG) Urine Nitrite (NEG) Ur Leukocyte Esterase (NEG) Urine RBC (0) /HPF Urine WBC (0-4) /HPF Ur Squamous Epith Cells /LPF Urine Bacteria /LPF Urine Mucus /LPF COVID-19 (JADE) Negative (Negative) COVID-19 Clin Com See Note Influenza Type A (JORGE) Negative (Negative) Influenza Type B (JORGE) Negative (Negative) Influenza A & B Note See Note 08/28/21 08/28/21 Range/Units 09:54 11:50 WBC (4.8-10.8) X10*3/uL RBC (4.20-5.50) X10*6/uL Hgb (12.0-16.0) g/dl Hct (37.0-47.0) % MCV (80.0-98.0) fL MCH (27.0-33.0) pg MCHC (31.0-35.0) g/dl RDW (11.0-16.0) % Plt Count (160-400) X10*3/uL MPV (9.4-12.3) fL Immature Gran % (Auto) (0.0-0.4) % Neut % (Auto) (45-73) % Lymph % (Auto) (20-40) % Hickman % (Auto) (2-11) % Eos % (Auto) (0-4) % Baso % (Auto) (0-2) % Lymph # (Auto) (1.2-4.9) X10*3/uL [place]man # (Auto) (0.1-1.2) X10*3/uL Eos # (Auto) (0.0-0.4) X10*3/uL Baso # (Auto) (0.0-0.2) X10*3/uL Abs Immat Gran (auto) (0.00-0.03) X10*3/uL Absolute Neuts (auto) (2.0-8.3) x10*3/uL Absolute Nucleated RBC (0.0-0.012) X10*3/uL Nucleated RBC % (auto) (0.0-0.2) /100WBC VBG pH 7.40 (7.32-7.43) VBG pCO2 38 mmHg VBG pO2 41 mmHg VBG HCO3 24 (22-26) mmol/L VBG O2 Saturation 66.0 % VBG Base Excess -0.2 mmol/L Sodium (135-145) mmol/L Potassium (3.3-5.1) mmol/L Chloride (96-108) mmol/L Carbon Dioxide (22-29) mmol/L Anion Gap (12-20) BUN (9-16) mg/dL Creatinine (0.5-1.4) mg/dL Estim Creat Clear Calc Estimated GFR Random Glucose (60-115) mg/dL Lactic Acid (0.5-2.0) mmol/L Calcium (8.4-10.2) mg/dL Magnesium (1.6-2.6) mg/dL Total Bilirubin (0.0-1.0) mg/dL AST (5-31) U/L ALT (0-31) U/L Alkaline Phosphatase (39-117) U/L Troponin I High Sens (<3.5-17.0) ng/L B-Natriuretic Peptide (<100) pg/mL Total Protein (6.5-8.0) g/dL Albumin (3.5-5.0) g/dL Urine Color YELLOW Urine Appearance CLEAR Urine pH 6.0 (5.0-8.0) Ur Specific [place] 1.025 (1.005-1.025) Urine Protein 2+ H (NEG-TRACE) MG/DL Urine Glucose (UA) NEG (NEG) MG/DL Urine Ketones 15 (NEG) MG/DL Urine Blood NEG (NEG) Urine Nitrite NEG (NEG) Ur Leukocyte Esterase NEG (NEG) Urine RBC 0 (0) /HPF Urine WBC 1-4 (0-4) /HPF Ur Squamous Epith Cells 1+ /LPF Urine Bacteria 1+ /LPF Urine Mucus 1+ /LPF COVID-19 (JADE) (Negative) COVID-19 Clin Com Influenza Type A (JORGE) (Negative) Influenza Type B (JORGE) (Negative) Influenza A & B Note <EDITH Francisco - Last Filed: 08/28/21 15:12> Lab Results 08/28/21 08/28/21 08/28/21 Range/Units 09:47 09:47 09:47 WBC 8.7 (4.8-10.8) X10*3/uL RBC 4.50 (4.20-5.50) X10*6/uL Hgb 13.2 (12.0-16.0) g/dl Hct 40.2 (37.0-47.0) % MCV 89.3 (80.0-98.0) fL MCH 29.3 (27.0-33.0) pg MCHC 32.8 (31.0-35.0) g/dl RDW 14.1 (11.0-16.0) % Plt Count 189 (160-400) X10*3/uL MPV 10.4 (9.4-12.3) fL Immature Gran % (Auto) 0.3 (0.0-0.4) % Neut % (Auto) 80.8 H (45-73) % Lymph % (Auto) 10.0 L (20-40) % Hickman % (Auto) 7.8 (2-11) % Eos % (Auto) 0.8 (0-4) % Baso % (Auto) 0.3 (0-2) % Lymph # (Auto) 0.9 L (1.2-4.9) X10*3/uL [place]man # (Auto) 0.7 (0.1-1.2) X10*3/uL Eos # (Auto) 0.1 (0.0-0.4) X10*3/uL Baso # (Auto) 0.0 (0.0-0.2) X10*3/uL Abs Immat Gran (auto) 0.03 (0.00-0.03) X10*3/uL Absolute Neuts (auto) 7.0 (2.0-8.3) x10*3/uL Absolute Nucleated RBC 0.000 (0.0-0.012) X10*3/uL Nucleated RBC % (auto) 0.0 (0.0-0.2) /100WBC VBG pH (7.32-7.43) VBG pCO2 mmHg VBG pO2 mmHg VBG HCO3 (22-26) mmol/L VBG O2 Saturation % VBG Base Excess mmol/L Sodium 139 (135-145) mmol/L Potassium 3.8 (3.3-5.1) mmol/L Chloride 102 (96-108) mmol/L Carbon Dioxide 26 (22-29) mmol/L Anion Gap 15 (12-20) BUN 21 H (9-16) mg/dL Creatinine 0.89 (0.5-1.4) mg/dL Estim Creat Clear Calc 30.1 Estimated GFR > 60 Random Glucose 155 H (60-115) mg/dL Lactic Acid (0.5-2.0) mmol/L Calcium 9.3 (8.4-10.2) mg/dL Magnesium 2.2 (1.6-2.6) mg/dL Total Bilirubin 1.5 H (0.0-1.0) mg/dL AST 23 (5-31) U/L ALT 26 (0-31) U/L Alkaline Phosphatase 72 (39-117) U/L Troponin I High Sens < 3.5 (<3.5-17.0) ng/L B-Natriuretic Peptide 106 H (<100) pg/mL Total Protein 7.0 (6.5-8.0) g/dL Albumin 4.4 (3.5-5.0) g/dL Urine Color Urine Appearance Urine pH (5.0-8.0) Ur Specific [place] (1.005-1.025) Urine Protein (NEG-TRACE) MG/DL Urine Glucose (UA) (NEG) MG/DL Urine Ketones (NEG) MG/DL Urine Blood (NEG) Urine Nitrite (NEG) Ur Leukocyte Esterase (NEG) Urine RBC (0) /HPF Urine WBC (0-4) /HPF Ur Squamous Epith Cells /LPF Urine Bacteria /LPF Urine Mucus /LPF COVID-19 (JADE) (Negative) COVID-19 Clin Com Influenza Type A (JORGE) (Negative) Influenza Type B (JORGE) (Negative) Influenza A & B Note 08/28/21 08/28/21 08/28/21 Range/Units 09:47 09:47 09:47 WBC (4.8-10.8) X10*3/uL RBC (4.20-5.50) X10*6/uL Hgb (12.0-16.0) g/dl Hct (37.0-47.0) % MCV (80.0-98.0) fL MCH (27.0-33.0) pg MCHC (31.0-35.0) g/dl RDW (11.0-16.0) % Plt Count (160-400) X10*3/uL MPV (9.4-12.3) fL Immature Gran % (Auto) (0.0-0.4) % Neut % (Auto) (45-73) % Lymph % (Auto) (20-40) % Hickman % (Auto) (2-11) % Eos % (Auto) (0-4) % Baso % (Auto) (0-2) % Lymph # (Auto) (1.2-4.9) X10*3/uL Hickman # (Auto) (0.1-1.2) X10*3/uL Eos # (Auto) (0.0-0.4) X10*3/uL Baso # (Auto) (0.0-0.2) X10*3/uL Abs Immat Gran (auto) (0.00-0.03) X10*3/uL Absolute Neuts (auto) (2.0-8.3) x10*3/uL Absolute Nucleated RBC (0.0-0.012) X10*3/uL Nucleated RBC % (auto) (0.0-0.2) /100WBC VBG pH (7.32-7.43) VBG pCO2 mmHg VBG pO2 mmHg VBG HCO3 (22-26) mmol/L VBG O2 Saturation % VBG Base Excess mmol/L Sodium (135-145) mmol/L Potassium (3.3-5.1) mmol/L Chloride (96-108) mmol/L Carbon Dioxide (22-29) mmol/L Anion Gap (12-20) BUN (9-16) mg/dL Creatinine (0.5-1.4) mg/dL Estim Creat Clear Calc Estimated GFR Random Glucose (60-115) mg/dL Lactic Acid 1.5 (0.5-2.0) mmol/L Calcium (8.4-10.2) mg/dL Magnesium (1.6-2.6) mg/dL Total Bilirubin (0.0-1.0) mg/dL AST (5-31) U/L ALT (0-31) U/L Alkaline Phosphatase (39-117) U/L Troponin I High Sens (<3.5-17.0) ng/L B-Natriuretic Peptide (<100) pg/mL Total Protein (6.5-8.0) g/dL Albumin (3.5-5.0) g/dL Urine Color Urine Appearance Urine pH (5.0-8.0) Ur Specific [place] (1.005-1.025) Urine Protein (NEG-TRACE) MG/DL Urine Glucose (UA) (NEG) MG/DL Urine Ketones (NEG) MG/DL Urine Blood (NEG) Urine Nitrite (NEG) Ur Leukocyte Esterase (NEG) Urine RBC (0) /HPF Urine WBC (0-4) /HPF Ur Squamous Epith Cells /LPF Urine Bacteria /LPF Urine Mucus /LPF COVID-19 (JADE) Negative (Negative) COVID-19 Clin Com See Note Influenza Type A (JORGE) Negative (Negative) Influenza Type B (JORGE) Negative (Negative) Influenza A & B Note See Note 08/28/21 08/28/21 Range/Units 09:54 11:50 WBC (4.8-10.8) X10*3/uL RBC (4.20-5.50) X10*6/uL Hgb (12.0-16.0) g/dl Hct (37.0-47.0) % MCV (80.0-98.0) fL MCH (27.0-33.0) pg MCHC (31.0-35.0) g/dl RDW (11.0-16.0) % Plt Count (160-400) X10*3/uL MPV (9.4-12.3) fL Immature Gran % (Auto) (0.0-0.4) % Neut % (Auto) (45-73) % Lymph % (Auto) (20-40) % Hickman % (Auto) (2-11) % Eos % (Auto) (0-4) % Baso % (Auto) (0-2) % Lymph # (Auto) (1.2-4.9) X10*3/uL Hickman # (Auto) (0.1-1.2) X10*3/uL Eos # (Auto) (0.0-0.4) X10*3/uL Baso # (Auto) (0.0-0.2) X10*3/uL Abs Immat Gran (auto) (0.00-0.03) X10*3/uL Absolute Neuts (auto) (2.0-8.3) x10*3/uL Absolute Nucleated RBC (0.0-0.012) X10*3/uL Nucleated RBC % (auto) (0.0-0.2) /100WBC VBG pH 7.40 (7.32-7.43) VBG pCO2 38 mmHg VBG pO2 41 mmHg VBG HCO3 24 (22-26) mmol/L VBG O2 Saturation 66.0 % VBG Base Excess -0.2 mmol/L Sodium (135-145) mmol/L Potassium (3.3-5.1) mmol/L Chloride (96-108) mmol/L Carbon Dioxide (22-29) mmol/L Anion Gap (12-20) BUN (9-16) mg/dL Creatinine (0.5-1.4) mg/dL Estim Creat Clear Calc Estimated GFR Random Glucose (60-115) mg/dL Lactic Acid (0.5-2.0) mmol/L Calcium (8.4-10.2) mg/dL Magnesium (1.6-2.6) mg/dL Total Bilirubin (0.0-1.0) mg/dL AST (5-31) U/L ALT (0-31) U/L Alkaline Phosphatase (39-117) U/L Troponin I High Sens (<3.5-17.0) ng/L B-Natriuretic Peptide (<100) pg/mL Total Protein (6.5-8.0) g/dL Albumin (3.5-5.0) g/dL Urine Color YELLOW Urine Appearance CLEAR Urine pH 6.0 (5.0-8.0) Ur Specific [place] 1.025 (1.005-1.025) Urine Protein 2+ H (NEG-TRACE) MG/DL Urine Glucose (UA) NEG (NEG) MG/DL Urine Ketones 15 (NEG) MG/DL Urine Blood NEG (NEG) Urine Nitrite NEG (NEG) Ur Leukocyte Esterase NEG (NEG) Urine RBC 0 (0) /HPF Urine WBC 1-4 (0-4) /HPF Ur Squamous Epith Cells 1+ /LPF Urine Bacteria 1+ /LPF Urine Mucus 1+ /LPF COVID-19 (JADE) (Negative) COVID-19 Clin Com Influenza Type A (JORGE) (Negative) Influenza Type B (JORGE) (Negative) Influenza A & B Note <EDITH Prabhakar - Last Filed: 08/28/21 17:57> Lab Results 08/28/21 08/28/21 08/28/21 Range/Units 09:47 09:47 09:47 WBC 8.7 (4.8-10.8) X10*3/uL RBC 4.50 (4.20-5.50) X10*6/uL Hgb 13.2 (12.0-16.0) g/dl Hct 40.2 (37.0-47.0) % MCV 89.3 (80.0-98.0) fL MCH 29.3 (27.0-33.0) pg MCHC 32.8 (31.0-35.0) g/dl RDW 14.1 (11.0-16.0) % Plt Count 189 (160-400) X10*3/uL MPV 10.4 (9.4-12.3) fL Immature Gran % (Auto) 0.3 (0.0-0.4) % Neut % (Auto) 80.8 H (45-73) % Lymph % (Auto) 10.0 L (20-40) % Hickman % (Auto) 7.8 (2-11) % Eos % (Auto) 0.8 (0-4) % Baso % (Auto) 0.3 (0-2) % Lymph # (Auto) 0.9 L (1.2-4.9) X10*3/uL Hickman # (Auto) 0.7 (0.1-1.2) X10*3/uL Eos # (Auto) 0.1 (0.0-0.4) X10*3/uL Baso # (Auto) 0.0 (0.0-0.2) X10*3/uL Abs Immat Gran (auto) 0.03 (0.00-0.03) X10*3/uL Absolute Neuts (auto) 7.0 (2.0-8.3) x10*3/uL Absolute Nucleated RBC 0.000 (0.0-0.012) X10*3/uL Nucleated RBC % (auto) 0.0 (0.0-0.2) /100WBC VBG pH (7.32-7.43) VBG pCO2 mmHg VBG pO2 mmHg VBG HCO3 (22-26) mmol/L VBG O2 Saturation % VBG Base Excess mmol/L Sodium 139 (135-145) mmol/L Potassium 3.8 (3.3-5.1) mmol/L Chloride 102 (96-108) mmol/L Carbon Dioxide 26 (22-29) mmol/L Anion Gap 15 (12-20) BUN 21 H (9-16) mg/dL Creatinine 0.89 (0.5-1.4) mg/dL Estim Creat Clear Calc 30.1 Estimated GFR > 60 Random Glucose 155 H (60-115) mg/dL Lactic Acid (0.5-2.0) mmol/L Calcium 9.3 (8.4-10.2) mg/dL Magnesium 2.2 (1.6-2.6) mg/dL Total Bilirubin 1.5 H (0.0-1.0) mg/dL AST 23 (5-31) U/L ALT 26 (0-31) U/L Alkaline Phosphatase 72 (39-117) U/L Troponin I High Sens < 3.5 (<3.5-17.0) ng/L B-Natriuretic Peptide 106 H (<100) pg/mL Total Protein 7.0 (6.5-8.0) g/dL Albumin 4.4 (3.5-5.0) g/dL Urine Color Urine Appearance Urine pH (5.0-8.0) Ur Specific [place] (1.005-1.025) Urine Protein (NEG-TRACE) MG/DL Urine Glucose (UA) (NEG) MG/DL Urine Ketones (NEG) MG/DL Urine Blood (NEG) Urine Nitrite (NEG) Ur Leukocyte Esterase (NEG) Urine RBC (0) /HPF Urine WBC (0-4) /HPF Ur Squamous Epith Cells /LPF Urine Bacteria /LPF Urine Mucus /LPF COVID-19 (JADE) (Negative) COVID-19 Clin Com Influenza Type A (JORGE) (Negative) Influenza Type B (JORGE) (Negative) Influenza A & B Note 08/28/21 08/28/21 08/28/21 Range/Units 09:47 09:47 09:47 WBC (4.8-10.8) X10*3/uL RBC (4.20-5.50) X10*6/uL Hgb (12.0-16.0) g/dl Hct (37.0-47.0) % MCV (80.0-98.0) fL MCH (27.0-33.0) pg MCHC (31.0-35.0) g/dl RDW (11.0-16.0) % Plt Count (160-400) X10*3/uL MPV (9.4-12.3) fL Immature Gran % (Auto) (0.0-0.4) % Neut % (Auto) (45-73) % Lymph % (Auto) (20-40) % Hickman % (Auto) (2-11) % Eos % (Auto) (0-4) % Baso % (Auto) (0-2) % Lymph # (Auto) (1.2-4.9) X10*3/uL Hickman # (Auto) (0.1-1.2) X10*3/uL Eos # (Auto) (0.0-0.4) X10*3/uL Baso # (Auto) (0.0-0.2) X10*3/uL Abs Immat Gran (auto) (0.00-0.03) X10*3/uL Absolute Neuts (auto) (2.0-8.3) x10*3/uL Absolute Nucleated RBC (0.0-0.012) X10*3/uL Nucleated RBC % (auto) (0.0-0.2) /100WBC VBG pH (7.32-7.43) VBG pCO2 mmHg VBG pO2 mmHg VBG HCO3 (22-26) mmol/L VBG O2 Saturation % VBG Base Excess mmol/L Sodium (135-145) mmol/L Potassium (3.3-5.1) mmol/L Chloride (96-108) mmol/L Carbon Dioxide (22-29) mmol/L Anion Gap (12-20) BUN (9-16) mg/dL Creatinine (0.5-1.4) mg/dL Estim Creat Clear Calc Estimated GFR Random Glucose (60-115) mg/dL Lactic Acid 1.5 (0.5-2.0) mmol/L Calcium (8.4-10.2) mg/dL Magnesium (1.6-2.6) mg/dL Total Bilirubin (0.0-1.0) mg/dL AST (5-31) U/L ALT (0-31) U/L Alkaline Phosphatase (39-117) U/L Troponin I High Sens (<3.5-17.0) ng/L B-Natriuretic Peptide (<100) pg/mL Total Protein (6.5-8.0) g/dL Albumin (3.5-5.0) g/dL Urine Color Urine Appearance Urine pH (5.0-8.0) Ur Specific [place] (1.005-1.025) Urine Protein (NEG-TRACE) MG/DL Urine Glucose (UA) (NEG) MG/DL Urine Ketones (NEG) MG/DL Urine Blood (NEG) Urine Nitrite (NEG) Ur Leukocyte Esterase (NEG) Urine RBC (0) /HPF Urine WBC (0-4) /HPF Ur Squamous Epith Cells /LPF Urine Bacteria /LPF Urine Mucus /LPF COVID-19 (JAED) Negative (Negative) COVID-19 Clin Com See Note Influenza Type A (JORGE) Negative (Negative) Influenza Type B (JORGE) Negative (Negative) Influenza A & B Note See Note 08/28/21 08/28/21 Range/Units 09:54 11:50 WBC (4.8-10.8) X10*3/uL RBC (4.20-5.50) X10*6/uL Hgb (12.0-16.0) g/dl Hct (37.0-47.0) % MCV (80.0-98.0) fL MCH (27.0-33.0) pg MCHC (31.0-35.0) g/dl RDW (11.0-16.0) % Plt Count (160-400) X10*3/uL MPV (9.4-12.3) fL Immature Gran % (Auto) (0.0-0.4) % Neut % (Auto) (45-73) % Lymph % (Auto) (20-40) % Hickman % (Auto) (2-11) % Eos % (Auto) (0-4) % Baso % (Auto) (0-2) % Lymph # (Auto) (1.2-4.9) X10*3/uL Hickman # (Auto) (0.1-1.2) X10*3/uL Eos # (Auto) (0.0-0.4) X10*3/uL Baso # (Auto) (0.0-0.2) X10*3/uL Abs Immat Gran (auto) (0.00-0.03) X10*3/uL Absolute Neuts (auto) (2.0-8.3) x10*3/uL Absolute Nucleated RBC (0.0-0.012) X10*3/uL Nucleated RBC % (auto) (0.0-0.2) /100WBC VBG pH 7.40 (7.32-7.43) VBG pCO2 38 mmHg VBG pO2 41 mmHg VBG HCO3 24 (22-26) mmol/L VBG O2 Saturation 66.0 % VBG Base Excess -0.2 mmol/L Sodium (135-145) mmol/L Potassium (3.3-5.1) mmol/L Chloride (96-108) mmol/L Carbon Dioxide (22-29) mmol/L Anion Gap (12-20) BUN (9-16) mg/dL Creatinine (0.5-1.4) mg/dL Estim Creat Clear Calc Estimated GFR Random Glucose (60-115) mg/dL Lactic Acid (0.5-2.0) mmol/L Calcium (8.4-10.2) mg/dL Magnesium (1.6-2.6) mg/dL Total Bilirubin (0.0-1.0) mg/dL AST (5-31) U/L ALT (0-31) U/L Alkaline Phosphatase (39-117) U/L Troponin I High Sens (<3.5-17.0) ng/L B-Natriuretic Peptide (<100) pg/mL Total Protein (6.5-8.0) g/dL Albumin (3.5-5.0) g/dL Urine Color YELLOW Urine Appearance CLEAR Urine pH 6.0 (5.0-8.0) Ur Specific [place] 1.025 (1.005-1.025) Urine Protein 2+ H (NEG-TRACE) MG/DL Urine Glucose (UA) NEG (NEG) MG/DL Urine Ketones 15 (NEG) MG/DL Urine Blood NEG (NEG) Urine Nitrite NEG (NEG) Ur Leukocyte Esterase NEG (NEG) Urine RBC 0 (0) /HPF Urine WBC 1-4 (0-4) /HPF Ur Squamous Epith Cells 1+ /LPF Urine Bacteria 1+ /LPF Urine Mucus 1+ /LPF COVID-19 (JADE) (Negative) COVID-19 Clin Com Influenza Type A (JORGE) (Negative) Influenza Type B (JORGE) (Negative) Influenza A & B Note <EDITH Willis - Last Filed: 08/29/21 09:59> Imaging Data Chest x-ray: Attestation: I personally reviewed and interpreted this imaging study as follows: <EDITH Francisco - Last Filed: 08/28/21 15:12> My impression: No acute process. <EDITH Francisco - Last Filed: 08/28/21 15:12> Radiologist's impression: EXAMINATION: XR CHEST CLINICAL INFORMATION: Altered mental status and weakness COMPARISON: CT chest 12/08/2020 TECHNIQUE: 2 views of the chest were obtained. FINDINGS: Lungs are hyperinflated consistent with emphysematous changes that were better characterized on the prior chest CT. Heart size normal. No infiltrates, effusions or lung masses are seen. XR/XR chest 2V IMPRESSION: COPD. No acute intrathoracic disease Dictated By: Ivan Maurer MD Signed By: Electronically signed by Ivan Maurer MD 08/28/21 1132 <EDITH Francisco - Last Filed: 08/28/21 15:12> CT scan - head: Attestation: I personally reviewed and interpreted this imaging study as follows: <EDITH Francisco - Last Filed: 08/28/21 15:12> My impression: No acute process. <EDITH Francisco - Last Filed: 08/28/21 15:12> Radiologist's impression: EXAMINATION: CT HEAD WITHOUT CONTRAST CLINICAL INFORMATION: Altered mental status.? COMPARISON: Head CT scan dated 12/08/2020. TECHNIQUE: Contiguous axial imaging was performed from the skull base to vertex without intravenous administration of contrast. Coronal and sagittal reformatted images were obtained. This CT examination was performed using dose optimization techniques as appropriate, variously including the following: *Automated exposure control *Adjustment of mA and/or kV according to patient size (this includes techniques or standardized protocols for targeted exams where dose is matched to indication/reason for exam; i.e. extremities or head) *Use of iterative reconstruction technique DLP: 570 mGy-cm FINDINGS: There is mild widening of the cortical sulci and associated ventriculomegaly. The lateral ventricles are symmetrical. The third and fourth ventricles are in their normal midline position. The basilar and prepontine cisterns are unremarkable. There is no acute intra or extracerebral abnormality. There is no mass effect or midline shift. Sections through the bony calvarium are unremarkable. The orbits are intact. The paranasal sinuses are clear. The mastoid air cells are clear. Moderate mid nasal septal deviation with moderate apical spur significant narrowing the nasal canal the level without significant change. CT/CT head/brain wo con IMPRESSION: No acute intracranial pathology. Dictated By: Arian Polk MD Signed By: Electronically signed by Arian Polk MD 08/28/21 1134 <EDITH Francisoc - Last Filed: 08/28/21 15:12> ECG Data Attestation: I personally reviewed and interpreted this ECG as follows: <EDITH Francisco - Last Filed: 08/28/21 15:12> Prior ECG tracings: available for review <EDITH Francisco - Last Filed: 08/28/21 15:12> Interpretation: Vent. Rate: 087 BPM ? ? Atrial Rate: 087 BPM P-R Int: 148 ms? QRS Dur: 076 ms QT Int: 380 ms ? ? ? P-R-T Axes: 085 073 070 degrees QTc Int: 457 ms ? Normal sinus rhythm Minimal voltage criteria for LVH, may be normal variant ( Sokolow-Gloria ) Septal infarct , age undetermined Abnormal ECG When compared with ECG of 08-DEC-2020 00:36, Septal infarct is now Present DD/ [id number] <EDITH Francisco - Last Filed: 08/28/21 15:12> Discharge Plan Discharge Clinical Impression: Weakness <EDITH Francisco Last Filed: 08/28/21 15:12> Patient Disposition: Home, Self-Care <EDITH Francisco - Last Filed: 08/28/21 15:12> Instructions: Weakness (ED) <EDITH Francisco - Last Filed: 08/28/21 15:12> Additional Instructions: Follow up with your primary care provider. Return to the emergency department immediately if your symptoms worsen or if you develop any dizziness, shortness of breath, difficulty breathing, chest pain, blurry vision, loss of vision, nausea, vomiting, abdominal pain, fever, chills, back pain, or any other complaints. <EDITH Francisco - Last Filed: 08/28/21 15:12> Prescriptions: No [facility] oxycodone 5 mg tablet 5 mg PO Q6H PRN (Reason: pain) Qty: 14 0RF <EDITH Francisco - Last Filed: 08/28/21 15:12> Referrals: [facility] [Outside] (Agency will contact you to arrange a visit. ) <EDITH Francisco - Last Filed: 08/28/21 15:12> Print Language: Tanzanian <EDITH Francisco - Last Filed: 08/28/21 15:12>
[2021-08-28 09:17] VITALS: BP 130/62; BP 144/44; PULSE 82; PULSE 92; RESP 16; TEMP 36.7; O2SAT 97; O2SAT 98; BMI 15.5
[2021-08-28 09:56] LABS: MANUAL DIFF FLAG NO
[2021-08-28 10:00] LABS: Venous Blood Gas Refer to POC result
[2021-08-28 10:01] LABS: VBG Base Excess -0.2 mmol/L; VBG HCO3 24 mmol/L (22-26); VBG pCO2 38 mmHg; VBG pO2 41 mmHg
[2021-08-28 10:03] LABS: Basophils Percent Auto 0.3 % (0-2); Eosinophils Absolute Auto 0.1 X10*3/uL (0.0-0.4); Eosinophils Percent Auto 0.8 % (0-4); Hematocrit 40.2 % (37.0-47.0); Hemoglobin 13.2 g/dl (12.0-16.0); Imm Gran Abs Auto 0.03 X10*3/uL (0.00-0.03); Imm Gran Pct Auto 0.3 % (0.0-0.4); Lymphocytes Absolute Auto 0.9 X10*3/uL (1.2-4.9); Mean Corpuscular HGB Conc 32.8 g/dl (31.0-35.0); Mean Corpuscular Hemoglobin 29.3 pg (27.0-33.0); Mean Corpuscular Volume 89.3 fL (80.0-98.0); Mean Platelet Volume 10.4 fL (9.4-12.3); Monocytes Absolute Auto 0.7 X10*3/uL (0.1-1.2); Monocytes Percent Auto 7.8 % (2-11); Neutrophils Percent Auto 80.8 % (45-73); Platelet Count 189 X10*3/uL (160-400); Red Cell Distribution Width 14.1 % (11.0-16.0); White Blood Count 8.7 X10*3/uL (4.8-10.8)
[2021-08-28 10:07] LABS: Lactic Acid 1.5 mmol/L (0.5-2.0)
[2021-08-28 10:14] LABS: Alanine Aminotransferase 26 U/L (0-31); Albumin Level 4.4 g/dL (3.5-5.0); Alkaline Phosphatase 72 U/L (39-117); Anion Gap 15 (12-20); Aspartate Amino Transferase 23 U/L (5-31); Bilirubin Total 1.5 mg/dL (0.0-1.0); Blood Urea Nitrogen 21 mg/dL (9-16); Calcium 9.3 mg/dL (8.4-10.2); Carbon Dioxide 26 mmol/L (22-29); Chloride 102 mmol/L (96-108); Creatinine Clr Calc Pharmacy 30.1; Estimated Glomerular Filt Rate > 60; Glucose Random 155 mg/dL (60-115); Magnesium 2.2 mg/dL (1.6-2.6); Potassium 3.8 mmol/L (3.3-5.1); Sodium 139 mmol/L (135-145)
[2021-08-28 10:15] LABS: COVID-19 Test Negative (Negative); IDNOW Serial# 16C4AD1C
[2021-08-28 10:16] LABS: IDNOW Serial# 9DB6401D; Influenza A Negative (Negative); Influenza B2 Negative (Negative)
[2021-08-28 10:18] LABS: B Type Natriuretic Peptide 106 pg/mL (<100); Troponin-I High Sensitivity < 3.5 ng/L (<3.5-17.0)
[2021-08-28 11:47] VITALS: BP 152/66; PULSE 100; O2SAT 100
[2021-08-28 11:56] LABS: Appearance Urine CLEAR; Color Urine YELLOW; Glucose Urine UA NEG (NEG); Leukocyte Esterase Urine NEG (NEG); Nitrite Urine NEG (NEG); Specific Gravity - Urine 1.025 (1.005-1.025); UACC Culture Trigger NO; Urine Blood NEG (NEG); Urine Ketones 15 MG/DL (NEG); Urine Protein 2+ MG/DL (NEG-TRACE)
[2021-08-28 12:16] LABS: Bacteria Urine 1+ /LPF; Mucus Urine 1+ /LPF; RBC Urine 0 /HPF (0); Squamous Epithelial Cell Urine 1+ /LPF
--- NOTE | 2021-08-28 13:23 | PC.NURSE ---
Physical Therapy at bedside for evaluation at this time Spoke to Isabella HCP who states pt unsafe to return home into current living situation and recent confusion. Plan for case management
--- NOTE | 2021-08-28 14:46 | MHC.CM.ED ---
Addendum entered by Nikia Carrero 08/28/21 14:55: Received message from DEBBIE Knutson, patient's HCP, [facility] is requesting a telephone call. T/W verified with patient it was ok to speak with [facility]. Attempted to reach [facility] via telephone at [phone]. Left message stating patient would return home with VNA. Original Note: Received case management consult from Carolina SHARMA. Patient came to ER due to altered mental status. Work up essentially negative. Physical therapy eval completed. Short term rehab is recommended. Met with patient and friend Susi. Patient lives alone at [facility], ambulates with a walker and has an aide through [facility]. Patient hasn't received any Covid vaccines due to having Cerebral Palsy. PCP verified as Dr Brandon. Copy of HCP verified to be on file. Patient has been to [facility] in the past. Patient did not have a good experience there and doesn't want to return to any short term rehab. Patient prefers to go home with VNA. She is in the process of trying to get into [facility]. Patient is requesting referral to [facility]. Referral made via [facility]. Susi has a 4pm appointment but will return at 5pm to transport patient home. Carolina SHARMA aware. Continue to monitor for d/c needs.
[2021-08-28 15:24] VITALS: BP 177/64; PULSE 79; RESP 14; O2SAT 100
--- NOTE | 2021-08-28 15:29 | PC.NURSE ---
Pt to be discharged home with VNA services. Awaiting a ride at this time and resting comfortably.
--- NOTE | 2021-08-28 18:01 | PC.NURSE ---
Friend Neena here to transport pt home and pt noted to be confused, not recognizing her. Plan for pt to stay and see case management again in AM for plan as pt unsafe to return home to independent living [place]. Isabella [phone] (friend and HCP) aware.
[2021-08-28 19:45] VITALS: BP 130/53; PULSE 86; RESP 18; O2SAT 98
--- NOTE | 2021-08-28 19:47 | PC.NURSE ---
pt alert and oriented to self, vss, pt c/o pain/cramping in both legs. medicated per provider order. pending case management/pt eval.
[2021-08-28] MEDS: Acetaminophen 325 MG TABLET 650 MG PO (19:49)
--- NOTE | 2021-08-28 20:55 | PC.NURSE ---
pt attempting to exit bed, increased confusion, pt transferred to a hospital bed, bed alarm activated.
--- NOTE | 2021-08-28 21:28 | PC.NURSE ---
spoke w HCP regarding pt med rec, doesn't have any additional info regarding pt medication, but will check apt tomorrow morning and call back.
--- NOTE | 2021-08-28 22:30 | PC.NURSE ---
discussion with pt regarding medication and importance of staying in bed/bed alarm. pt declined medication.
[2021-08-29 03:19] VITALS: BP 123/66; PULSE 71; RESP 16; O2SAT 98
[2021-08-29 07:13] VITALS: BP 174/62; PULSE 73; RESP 16; O2SAT 97
--- NOTE | 2021-08-29 11:17 | MHC.CM.ED ---
Patient remains in ER. Patient's friend came to transport patient home last night and found patient to be confused. Patient spent the night in the ER. Patient is now agreeable to short term rehab. Patient has not received any Covid vaccines and is active with [facility]. Patient may be difficult to place due to not being vaccinated. Referral broadcasted in [facility]. [facility] and [facility] are able to offer a bed. Patient accepts a bed at [facility] will go for insurance auth. Patient has a history of cerebral palsy since . Patient is not active with any agencies due to CP. PASRR exemption letter will be needed from [employer]. Screen emailed to [employer]. Continue to monitor for d/c needs.
--- NOTE | 2021-08-29 14:05 | MHC.CM.ED ---
Insurance auth has been obtained by [place]. Patient can leave at 330pm. [facility] booked. Med nec with chart. Patient, Anisa LEWIS and Susi SHARMA aware. Attempted to let Isabella know via telephone at [phone]. Left message with discharge info provided. Continue to monitor for d/c needs.
[2021-08-29 14:42] VITALS: BP 182/79; PULSE 86; RESP 18; O2SAT 100
== END 2021-08-29 16:04 ==
PROVIDERS: Physician Assistant Medical; Emergency Provider Student in an Organized Health Care Education/Training Program; PCP Psychiatry & Neurology Neurology
DX: R53.1 Weakness (principal); R54 Age-related physical debility; Z91.81 History of falling; Z20.822 Contact with and (suspected) exposure to COVID-19
CPT/HCPCS: 36415; 70450; 71046; 80053; 81001; 82803; 83605; 83735; 83880; 84484; 85025; 87040; 87502; 87635; 93005; 97162; 99285; Q0163

== ENCOUNTER 2022-03-14 11:26 | Emergency (ER) | payer MEDICARE, SELFPAY ==
--- NOTE | ~2022-03-14 | CT_ITS ---
EXAMINATION: CT HEAD WITHOUT CONTRAST CT CERVICAL SPINE WITHOUT CONTRAST CLINICAL INFORMATION: Fall. COMPARISON: CT head 08/28/2021. TECHNIQUE: Billing Manager images were obtained. CT imaging of the head and cervical spine was performed without contrast. Data was reformatted into multiplanar images at the acquisition workstation. This CT examination was performed using dose optimization techniques as appropriate, including one or more of the following: Automated exposure control, iterative reconstruction, and adjustment of technique factors (mA and/or kVp) according to patient size (this includes techniques or standardized protocols for targeted exams where dose is matched to indication/reason for exam). Fleischner Society criteria for the followup of incidental pulmonary nodules was implemented if appropriate. DLP: 804 mGy-cm. FINDINGS: Head: There is no acute intracranial hemorrhage or abnormal extra-axial collection. No intracranial mass effect or midline shift. There is loss of parenchymal volume with associated ex vacuo enlargement of the atria of the lateral ventricles. Viera-white matter differentiation is otherwise preserved and there is no evidence of acute territorial infarct. The calvarium and skull base are intact. Mastoid air cells and middle ear cavities are well aerated. No active paranasal sinus disease. Globes and orbits are symmetric. Cervical spine: There is slight anterolisthesis of C4 on C5 and C7 on T1 that appears to be related to facet degenerative changes at these levels. Alignment is otherwise normal. Vertebral heights are preserved. No acute fracture. No abnormal prevertebral soft tissue swelling. There is slight loss of intervertebral disc height with associated sclerotic degenerative endplate changes at C5-C6 and C6-C7. Grossly no evidence of spinal canal compromise. Soft tissues of the neck are unremarkable. There is pleural-parenchymal scarring at the apices of both lungs. CT/CT cervical spine wo IV con IMPRESSION: Head: There is loss of parenchymal volume with associated ex vacuo enlargement of the atria of the lateral ventricles. Otherwise unremarkable examination. No evidence of acute territorial infarct or hemorrhage. Cervical spine: There is multilevel degenerative spondylosis of the cervical spine with slight anterolisthesis of C4 on C5 and C7 on T1 related to facet degenerative changes at these levels. No acute fracture and no posttraumatic spinal subluxation.
--- NOTE | ~2022-03-14 | CT_ITS ---
EXAMINATION: CT HEAD WITHOUT CONTRAST CT CERVICAL SPINE WITHOUT CONTRAST CLINICAL INFORMATION: Fall. COMPARISON: CT head 08/28/2021. TECHNIQUE: Wearing Apparel Assembler images were obtained. CT imaging of the head and cervical spine was performed without contrast. Data was reformatted into multiplanar images at the acquisition workstation. This CT examination was performed using dose optimization techniques as appropriate, including one or more of the following: Automated exposure control, iterative reconstruction, and adjustment of technique factors (mA and/or kVp) according to patient size (this includes techniques or standardized protocols for targeted exams where dose is matched to indication/reason for exam). Fleischner Society criteria for the followup of incidental pulmonary nodules was implemented if appropriate. DLP: 804 mGy-cm. FINDINGS: Head: There is no acute intracranial hemorrhage or abnormal extra-axial collection. No intracranial mass effect or midline shift. There is loss of parenchymal volume with associated ex vacuo enlargement of the atria of the lateral ventricles. Viera-white matter differentiation is otherwise preserved and there is no evidence of acute territorial infarct. The calvarium and skull base are intact. Mastoid air cells and middle ear cavities are well aerated. No active paranasal sinus disease. Globes and orbits are symmetric. Cervical spine: There is slight anterolisthesis of C4 on C5 and C7 on T1 that appears to be related to facet degenerative changes at these levels. Alignment is otherwise normal. Vertebral heights are preserved. No acute fracture. No abnormal prevertebral soft tissue swelling. There is slight loss of intervertebral disc height with associated sclerotic degenerative endplate changes at C5-C6 and C6-C7. Grossly no evidence of spinal canal compromise. Soft tissues of the neck are unremarkable. There is pleural-parenchymal scarring at the apices of both lungs. CT/CT head/brain wo IV con IMPRESSION: Head: There is loss of parenchymal volume with associated ex vacuo enlargement of the atria of the lateral ventricles. Otherwise unremarkable examination. No evidence of acute territorial infarct or hemorrhage. Cervical spine: There is multilevel degenerative spondylosis of the cervical spine with slight anterolisthesis of C4 on C5 and C7 on T1 related to facet degenerative changes at these levels. No acute fracture and no posttraumatic spinal subluxation.
--- NOTE | 2022-03-14 11:31 | ECG_ITS ---
Test Reason : FALL Blood Pressure : / mmHG Vent. Rate : 070 BPM Atrial Rate : 070 BPM P-R Int : 154 ms QRS Dur : 082 ms QT Int : 400 ms P-R-T Axes : 086 056 064 degrees QTc Int : 432 ms Normal sinus rhythm Possible Left atrial enlargement Minimal voltage criteria for LVH, may be normal variant ( Sokolow-Gloria ) Borderline ECG When compared with ECG of 28-AUG-2021 09:48, No significant change was found Referred By: Janett Shields Electronically Signed By:BOBBY MAGANA
[2022-03-14 11:44] VITALS: BP 161/62; BP 162/84; PULSE 72; PULSE 76; RESP 16; TEMP 36.8; O2SAT 100; O2SAT 98; BMI 15.8
[2022-03-14 12:15] LABS: MANUAL DIFF FLAG NO
[2022-03-14 12:16] LABS: Basophils Percent Auto 0.2 % (0-2); Eosinophils Percent Auto 0.5 % (0-4); Hematocrit 35.7 % (37.0-47.0); Hemoglobin 11.6 g/dl (12.0-16.0); Imm Gran Abs Auto 0.01 X10*3/uL (0.00-0.03); Imm Gran Pct Auto 0.2 % (0.0-0.4); Lymphocytes Absolute Auto 1.1 X10*3/uL (1.2-4.9); Lymphocytes Percent Auto 25.5 % (20-40); Mean Corpuscular HGB Conc 32.5 g/dl (31.0-35.0); Mean Corpuscular Hemoglobin 29.7 pg (27.0-33.0); Mean Corpuscular Volume 91.5 fL (80.0-98.0); Mean Platelet Volume 9.7 fL (9.4-12.3); Monocytes Absolute Auto 0.4 X10*3/uL (0.1-1.2); Monocytes Percent Auto 9.9 % (2-11); Neutrophils Absolute Auto 2.7 x10*3/uL (2.0-8.3); Neutrophils Percent Auto 63.7 % (45-73); Platelet Count 166 X10*3/uL (160-400); Red Cell Distribution Width 13.7 % (11.0-16.0); White Blood Count 4.2 X10*3/uL (4.8-10.8)
[2022-03-14 12:38] LABS: Troponin-I High Sensitivity < 3.5 ng/L (<3.5-17.0)
[2022-03-14 12:42] LABS: Alanine Aminotransferase 25 U/L (0-31); Albumin Level 3.9 g/dL (3.5-5.0); Alkaline Phosphatase 56 U/L (39-117); Anion Gap 12 (12-20); Aspartate Amino Transferase 30 U/L (5-31); Bilirubin Total 0.7 mg/dL (0.0-1.0); Blood Urea Nitrogen 33 mg/dL (9-16); Carbon Dioxide 26 mmol/L (22-29); Chloride 108 mmol/L (96-108); Creatinine Clr Calc Pharmacy 39.1; Estimated Glomerular Filt Rate > 60; Glucose Random 105 mg/dL (60-115); Potassium 3.6 mmol/L (3.3-5.1); Sodium 142 mmol/L (135-145); Total Protein 6.1 g/dL (6.5-8.0)
--- NOTE | 2022-03-14 12:59 | ED_ITS ---
HPI - Fall General Chief Complaint: Fall <Janett Shields NP - Last Filed: 03/14/22 16:47> Stated Complaint: fall with + headstrike <Janett Shields NP - Last Filed: 03/14/22 16:47> Time Seen by Provider: 03/14/22 11:31 <Janett Shields NP - Last Filed: 03/14/22 16:47> Source: EMS <Janett Shields NP - Last Filed: 03/14/22 16:47> Mode of arrival: EMS <Janett Shields NP - Last Filed: 03/14/22 16:47> Limitations: altered mental status and physical limitation <Janett Shields NP - Last Filed: 03/14/22 16:47> History of Present Illness HPI Narrative: 76-year-old female with past medical history of cerebral palsy presents to the emergency department, by EMS in a C-collar, after an unwitnessed fall at [facility]. Per EMS the patient sustained a mechanical fall when she fell backwards hitting the back of her head sustaining a small hematoma. Patient is not on a blood thinner and had no loss of consciousness. Patient is slightly confused which is stated by her emergency contact Sister Edyta Nunez, as her baseline. Patient is unaware of any preceding physical symptoms prior to falling. In the emergency department she denies any dizziness, lightheadedness, headache, shortness of breath, chest pain, vision changes, although she is not a good historian. <Janett Shields NP - Last Filed: 03/14/22 16:47> MD complaint: fall <Janett Shields NP - Last Filed: 03/14/22 16:47> Onset (ago): hour(s) <Janett Shields NP - Last Filed: 03/14/22 16:47> Related Data Home Medications: Home Medications Medication Instructions Recorded Confirmed No Known Home Meds 03/14/22 03/14/22 <Janett Shields NP - Last Filed: 03/14/22 16:47> Allergies/Adverse Reactions: Allergies Allergy/AdvReac Type Severity Reaction Status Date / Time No Known Allergies Allergy Unverified 12/08/20 00:11 <Janett Shields NP - Last Filed: 03/14/22 16:47> Review of Systems Review of Systems: Patient denies any other physical complaints, however; she is a poor historian and is confused at baseline. <Janett Shields NP - Last Filed: 03/14/22 16:47> [facility] Past Medical History Attestation statement: The following information was validated with the patient. <Janett Shields NP - Last Filed: 03/14/22 16:47> Source: old records reviewed <Janett Shields NP - Last Filed: 03/14/22 16:47> Medical History: Medical History Cerebral palsy <Janett Shields NP - Last Filed: 03/14/22 16:47> Social History Social History: Social History Alcohol intake: never Patient Tobacco Use Status: Never used Tobacco Advance Directives: Yes Advance Directives on File: Yes Advance Directives Date on File: 12/10/20 <Janett Shields NP - Last Filed: 03/14/22 16:47> Physical Exam Vital Signs: Vital Signs: Last Vital Signs Temp 97.9 F 03/15/22 02:52 Pulse 84 03/15/22 13:38 Resp 16 03/15/22 13:38 BP 173/120 H 03/15/22 13:38 Pulse Ox 98 03/15/22 13:38 O2 Del Method 03/15/22 13:38 BMI result Body Mass Index 15.8 <Janett Shields NP - Last Filed: 03/14/22 16:47> Vital Signs: Last Vital Signs Temp 97.9 F 03/15/22 02:52 Pulse 84 03/15/22 13:38 Resp 16 03/15/22 13:38 BP 173/120 H 03/15/22 13:38 Pulse Ox 98 03/15/22 13:38 O2 Del Method 03/15/22 13:38 BMI result Body Mass Index 15.8 <EDITH Momin - Last Filed: 03/15/22 17:58> Nursing notes and vital signs reviewed. GENERAL APPEARANCE: Alert and oriented to person and place, generally well appearing, no acute distress HENMT: Normal to inspection, face symmetrical, with no palpable hematoma noted. Normal external ears, nose, and oropharynx clear. EYE: PERRLA, EOM intact, structures appear normal NECK: Supple without lymphadenopathy. No stiffness or restricted ROM. CHEST: Normal to inspection HEART: Normal rate and regular rhythm, normal S1/S2 LUNGS: LS CTA, moving air well. Able to speak in complete sentences. No crackles, wheezes, or rhonchi auscultated ABDOMEN: Soft, nontender, nondistended. Normal bowel sounds noted BACK: No CVAT, no obvious deformity. Exam limited due to C-collar EXTREMITIES: Moving all extremities without difficulty. No cyanosis, clubbing, or edema. Normal capillary refill. NEUROLOGICAL: Alert and oriented to person and place, moving all 4 extremities with equal strength. CN not formally tested but appearing grossly intact. SKIN: Warm and dry without any lesions, rash, or visible sores PSYCH: Cooperative, normal affect <Janett Shields NP - Last Filed: 03/14/22 16:47> Course Course Course Narrative: 1130: EKG and blood work ordered. CT head and C-spine ordered 1415: Spoke with Sister Edyta Nunez, patient's emergency contact, regarding patient's baseline mental status and housing situation. Due to mental status, patient does not seem safe to return home alone at this time. 1430: Case management and PT consult ordered as patient is not safe to go home at this time, as she lives alone 1500: Patient ambulated in hallway using walker with PT. <Janett Shields NP - Last Filed: 03/14/22 16:47> Reevaluation(s) Reevaluation #1: Physician observation continued. Patient not in any distress. Brother will be picking up patient bring her home. Patient was well during ED stay. <EDITH Momin - Last Filed: 03/15/22 17:58> Time: 15:50 <EDITH Momin - Last Filed: 03/15/22 17:58> Medical Decision Making Medical Decision Making MDM Narrative: 76-year-old female with past medical history of cerebral palsy presents to the emergency department, by EMS in a C-collar, after an unwitnessed fall at [facility]. Per EMS the patient sustained a mechanical fall when she fell backwards hitting the back of her head sustaining a small hematoma. EKG normal sinus rhythm with possible left atrial enlargement, minimum voltage criteria for LVH, maybe normal variant. No significant change compared to EKG done 08/28/2021. Troponin negative. Remaining blood work unremarkable. Urinalysis unremarkable for signs of infection. The CT head and cervical spine with no evidence of acute territorial infarct or hemorrhage, no acute fracture, or posttraumatic spinal subluxation. C-collar removed. Sister Edyta Nunez at [facility] contacted regarding patient's mental status and housing. Sister states she has difficulty with her memory and mental status at baseline and that she lives in the assisted living section at [facility]. Concern for discharging patient home to assisted living as she lives alone and has generalized weakness and recently fallen. Spoke with case management and physical therapy regarding patient's status with plan for possible short-term rehab. HPI, PE, diagnosis, and plan discussed with patient with patient fer earing to have difficulty in understanding that she is not safe to go home alone. Physician observation started at 1530. PT assessment conducted and recommends short term rehab. Case management working on placement. Pt awake and oriented to person and place. Vital signs stable. <Janett Shields NP - Last Filed: 03/14/22 16:47> Lab Data MDM Lab Attestation statement: I reviewed the patient's lab results. <Janett Shields NP - Last Filed: 03/14/22 16:47> Result Diagrams: 03/14/22 12:10 03/14/22 12:10 <Janett Shields NP - Last Filed: 03/14/22 16:47> Labs: Lab Results 03/14/22 03/14/22 03/14/22 Range/Units 12:10 12:10 12:10 WBC 4.2 L (4.8-10.8) X10*3/uL RBC 3.90 L (4.20-5.50) X10*6/uL Hgb 11.6 L (12.0-16.0) g/dl Hct 35.7 L (37.0-47.0) % MCV 91.5 (80.0-98.0) fL MCH 29.7 (27.0-33.0) pg MCHC 32.5 (31.0-35.0) g/dl RDW 13.7 (11.0-16.0) % Plt Count 166 (160-400) X10*3/uL MPV 9.7 (9.4-12.3) fL Immature Gran % (Auto) 0.2 (0.0-0.4) % Neut % (Auto) 63.7 (45-73) % Lymph % (Auto) 25.5 (20-40) % [place] % (Auto) 9.9 (2-11) % Eos % (Auto) 0.5 (0-4) % Baso % (Auto) 0.2 (0-2) % Lymph # (Auto) 1.1 L (1.2-4.9) X10*3/uL [place] # (Auto) 0.4 (0.1-1.2) X10*3/uL Eos # (Auto) 0.0 (0.0-0.4) X10*3/uL Baso # (Auto) 0.0 (0.0-0.2) X10*3/uL Abs Immat Gran (auto) 0.01 (0.00-0.03) X10*3/uL Absolute Neuts (auto) 2.7 (2.0-8.3) x10*3/uL Absolute Nucleated RBC 0.000 (0.0-0.012) X10*3/uL Nucleated RBC % (auto) 0.0 (0.0-0.2) /100WBC Sodium 142 (135-145) mmol/L Potassium 3.6 (3.3-5.1) mmol/L Chloride 108 (96-108) mmol/L Carbon Dioxide 26 (22-29) mmol/L Anion Gap 12 (12-20) BUN 33 H D (9-16) mg/dL Creatinine 0.70 (0.5-1.4) mg/dL Estim Creat Clear Calc 39.1 Estimated GFR > 60 Random Glucose 105 (60-115) mg/dL Calcium 9.0 (8.4-10.2) mg/dL Total Bilirubin 0.7 (0.0-1.0) mg/dL AST 30 (5-31) U/L ALT 25 (0-31) U/L Alkaline Phosphatase 56 D (39-117) U/L Troponin I High Sens < 3.5 (<3.5-17.0) ng/L Total Protein 6.1 L (6.5-8.0) g/dL Albumin 3.9 (3.5-5.0) g/dL Urine Color Urine Appearance Urine pH (5.0-9.0) Ur Specific [place] (1.005-1.025) Urine Protein (Neg-Trace) mg/dL Urine Glucose (UA) (Negative) mg/dL Urine Ketones (Negative) mg/dL Urine Blood (Negative) Urine Nitrite (Negative) Ur Leukocyte Esterase (Negative) Urine RBC (0-2) /HPF Urine WBC (0-5) /HPF Ur Squamous Epith Cells (0-2) /HPF Urine Bacteria (None Seen) Hyaline Casts (0-2) /LPF COVID-19 (JADE) (Negative) COVID-19 Clin Com 03/14/22 03/14/22 Range/Units 14:42 14:42 WBC (4.8-10.8) X10*3/uL RBC (4.20-5.50) X10*6/uL Hgb (12.0-16.0) g/dl Hct (37.0-47.0) % MCV (80.0-98.0) fL MCH (27.0-33.0) pg MCHC (31.0-35.0) g/dl RDW (11.0-16.0) % Plt Count (160-400) X10*3/uL MPV (9.4-12.3) fL Immature Gran % (Auto) (0.0-0.4) % Neut % (Auto) (45-73) % Lymph % (Auto) (20-40) % [place] % (Auto) (2-11) % Eos % (Auto) (0-4) % Baso % (Auto) (0-2) % Lymph # (Auto) (1.2-4.9) X10*3/uL [place] # (Auto) (0.1-1.2) X10*3/uL Eos # (Auto) (0.0-0.4) X10*3/uL Baso # (Auto) (0.0-0.2) X10*3/uL Abs Immat Gran (auto) (0.00-0.03) X10*3/uL Absolute Neuts (auto) (2.0-8.3) x10*3/uL Absolute Nucleated RBC (0.0-0.012) X10*3/uL Nucleated RBC % (auto) (0.0-0.2) /100WBC Sodium (135-145) mmol/L Potassium (3.3-5.1) mmol/L Chloride (96-108) mmol/L Carbon Dioxide (22-29) mmol/L Anion Gap (12-20) BUN (9-16) mg/dL Creatinine (0.5-1.4) mg/dL Estim Creat Clear Calc Estimated GFR Random Glucose (60-115) mg/dL Calcium (8.4-10.2) mg/dL Total Bilirubin (0.0-1.0) mg/dL AST (5-31) U/L ALT (0-31) U/L Alkaline Phosphatase (39-117) U/L Troponin I High Sens (<3.5-17.0) ng/L Total Protein (6.5-8.0) g/dL Albumin (3.5-5.0) g/dL Urine Color Yellow Urine Appearance Clear Urine pH 7.0 (5.0-9.0) Ur Specific [place] 1.020 (1.005-1.025) Urine Protein 100 (2+) H (Neg-Trace) mg/dL Urine Glucose (UA) Negative (Negative) mg/dL Urine Ketones 15 (Negative) mg/dL Urine Blood Negative (Negative) Urine Nitrite Negative (Negative) Ur Leukocyte Esterase Negative (Negative) Urine RBC 0-2 (0-2) /HPF Urine WBC 0-5 (0-5) /HPF Ur Squamous Epith Cells 0-2 (0-2) /HPF Urine Bacteria None Seen (None Seen) Hyaline Casts 0-2 (0-2) /LPF COVID-19 (JADE) Negative (Negative) COVID-19 Clin Com See Note <Janett Shields NP - Last Filed: 03/14/22 16:47> Lab Results 03/14/22 03/14/22 03/14/22 Range/Units 12:10 12:10 12:10 WBC 4.2 L (4.8-10.8) X10*3/uL RBC 3.90 L (4.20-5.50) X10*6/uL Hgb 11.6 L (12.0-16.0) g/dl Hct 35.7 L (37.0-47.0) % MCV 91.5 (80.0-98.0) fL MCH 29.7 (27.0-33.0) pg MCHC 32.5 (31.0-35.0) g/dl RDW 13.7 (11.0-16.0) % Plt Count 166 (160-400) X10*3/uL MPV 9.7 (9.4-12.3) fL Immature Gran % (Auto) 0.2 (0.0-0.4) % Neut % (Auto) 63.7 (45-73) % Lymph % (Auto) 25.5 (20-40) % [place] % (Auto) 9.9 (2-11) % Eos % (Auto) 0.5 (0-4) % Baso % (Auto) 0.2 (0-2) % Lymph # (Auto) 1.1 L (1.2-4.9) X10*3/uL [place] # (Auto) 0.4 (0.1-1.2) X10*3/uL Eos # (Auto) 0.0 (0.0-0.4) X10*3/uL Baso # (Auto) 0.0 (0.0-0.2) X10*3/uL Abs Immat Gran (auto) 0.01 (0.00-0.03) X10*3/uL Absolute Neuts (auto) 2.7 (2.0-8.3) x10*3/uL Absolute Nucleated RBC 0.000 (0.0-0.012) X10*3/uL Nucleated RBC % (auto) 0.0 (0.0-0.2) /100WBC Sodium 142 (135-145) mmol/L Potassium 3.6 (3.3-5.1) mmol/L Chloride 108 (96-108) mmol/L Carbon Dioxide 26 (22-29) mmol/L Anion Gap 12 (12-20) BUN 33 H D (9-16) mg/dL Creatinine 0.70 (0.5-1.4) mg/dL Estim Creat Clear Calc 39.1 Estimated GFR > 60 Random Glucose 105 (60-115) mg/dL Calcium 9.0 (8.4-10.2) mg/dL Total Bilirubin 0.7 (0.0-1.0) mg/dL AST 30 (5-31) U/L ALT 25 (0-31) U/L Alkaline Phosphatase 56 D (39-117) U/L Troponin I High Sens < 3.5 (<3.5-17.0) ng/L Total Protein 6.1 L (6.5-8.0) g/dL Albumin 3.9 (3.5-5.0) g/dL Urine Color Urine Appearance Urine pH (5.0-9.0) Ur Specific [place] (1.005-1.025) Urine Protein (Neg-Trace) mg/dL Urine Glucose (UA) (Negative) mg/dL Urine Ketones (Negative) mg/dL Urine Blood (Negative) Urine Nitrite (Negative) Ur Leukocyte Esterase (Negative) Urine RBC (0-2) /HPF Urine WBC (0-5) /HPF Ur Squamous Epith Cells (0-2) /HPF Urine Bacteria (None Seen) Hyaline Casts (0-2) /LPF COVID-19 (JADE) (Negative) COVID-19 Clin Com 03/14/22 03/14/22 Range/Units 14:42 14:42 WBC (4.8-10.8) X10*3/uL RBC (4.20-5.50) X10*6/uL Hgb (12.0-16.0) g/dl Hct (37.0-47.0) % MCV (80.0-98.0) fL MCH (27.0-33.0) pg MCHC (31.0-35.0) g/dl RDW (11.0-16.0) % Plt Count (160-400) X10*3/uL MPV (9.4-12.3) fL Immature Gran % (Auto) (0.0-0.4) % Neut % (Auto) (45-73) % Lymph % (Auto) (20-40) % [place] % (Auto) (2-11) % Eos % (Auto) (0-4) % Baso % (Auto) (0-2) % Lymph # (Auto) (1.2-4.9) X10*3/uL [place] # (Auto) (0.1-1.2) X10*3/uL Eos # (Auto) (0.0-0.4) X10*3/uL Baso # (Auto) (0.0-0.2) X10*3/uL Abs Immat Gran (auto) (0.00-0.03) X10*3/uL Absolute Neuts (auto) (2.0-8.3) x10*3/uL Absolute Nucleated RBC (0.0-0.012) X10*3/uL Nucleated RBC % (auto) (0.0-0.2) /100WBC Sodium (135-145) mmol/L Potassium (3.3-5.1) mmol/L Chloride (96-108) mmol/L Carbon Dioxide (22-29) mmol/L Anion Gap (12-20) BUN (9-16) mg/dL Creatinine (0.5-1.4) mg/dL Estim Creat Clear Calc Estimated GFR Random Glucose (60-115) mg/dL Calcium (8.4-10.2) mg/dL Total Bilirubin (0.0-1.0) mg/dL AST (5-31) U/L ALT (0-31) U/L Alkaline Phosphatase (39-117) U/L Troponin I High Sens (<3.5-17.0) ng/L Total Protein (6.5-8.0) g/dL Albumin (3.5-5.0) g/dL Urine Color Yellow Urine Appearance Clear Urine pH 7.0 (5.0-9.0) Ur Specific [place] 1.020 (1.005-1.025) Urine Protein 100 (2+) H (Neg-Trace) mg/dL Urine Glucose (UA) Negative (Negative) mg/dL Urine Ketones 15 (Negative) mg/dL Urine Blood Negative (Negative) Urine Nitrite Negative (Negative) Ur Leukocyte Esterase Negative (Negative) Urine RBC 0-2 (0-2) /HPF Urine WBC 0-5 (0-5) /HPF Ur Squamous Epith Cells 0-2 (0-2) /HPF Urine Bacteria None Seen (None Seen) Hyaline Casts 0-2 (0-2) /LPF COVID-19 (JADE) Negative (Negative) COVID-19 Clin Com See Note <EDITH Momin - Last Filed: 03/15/22 17:58> Independent Interpretation I performed an independent interpretation of an: EKG <Janett Shields NP - Last Filed: 03/14/22 16:47> Interpretation: I independently interpreted the EKG showing normal sinus rhythm with no significant changes compared to last EKG done 08/28/2021. Vent. Rate : 070 BPM ? ? Atrial Rate : 070 BPM ?? P-R Int : 154 ms? QRS Dur : 082 ms ? ? QT Int : 400 ms ? ? ? P-R-T Axes : 086 056 064 degrees ?? QTc Int : 432 ms ? Normal sinus rhythm Possible Left atrial enlargement Minimal voltage criteria for LVH, may be normal variant ( Sokolow-Gloria ) Borderline ECG When compared with ECG of 28-AUG-2021 09:48, No significant change was found <Janett Shields NP - Last Filed: 03/14/22 16:47> Radiology Impression Discussion of test interpretation with radiology: I have reviewed the radiologist's reading. <Janett Shields NP - Last Filed: 03/14/22 16:47> Radiologist Impression: I independently reviewed the CT head and cervical spine showing no evidence of acute territorial infarct or hemorrhage, no acute fracture of the cervical spine, and no posttraumatic spinal subluxation. EXAMINATION: CT HEAD WITHOUT CONTRAST CT CERVICAL SPINE WITHOUT CONTRAST CLINICAL INFORMATION: Fall.? COMPARISON: CT head 08/28/2021.? TECHNIQUE: [employer] Sawyer images were obtained. CT imaging of the head and cervical spine was performed without contrast. Data was reformatted into multiplanar images at the acquisition workstation. This CT examination was performed using dose optimization techniques as appropriate, including one or more of the following: Automated exposure control, iterative reconstruction, and adjustment of technique factors (mA and/or kVp) according to patient size (this includes techniques or standardized protocols for targeted exams where dose is matched to indication/reason for exam). Fleischner Society criteria for the followup of incidental pulmonary nodules was implemented if appropriate. DLP: 804 mGy-cm. FINDINGS: Head: There is no acute intracranial hemorrhage or abnormal extra-axial collection. No intracranial mass effect or midline shift. There is loss of parenchymal volume with associated ex vacuo enlargement of the atria of the lateral ventricles. Viera-white matter differentiation is otherwise preserved and there is no evidence of acute territorial infarct. The calvarium and skull base are intact. Mastoid air cells and middle ear cavities are well aerated. No active paranasal sinus disease. Globes and orbits are symmetric. Cervical spine: There is slight anterolisthesis of C4 on C5 and C7 on T1 that appears to be related to facet degenerative changes at these levels. Alignment is otherwise normal. Vertebral heights are preserved. No acute fracture. No abnormal prevertebral soft tissue swelling. There is slight loss of intervertebral disc height with associated sclerotic degenerative endplate changes at C5-C6 and C6-C7. Grossly no evidence of spinal canal compromise. Soft tissues of the neck are unremarkable. There is pleural-parenchymal scarring at the apices of both lungs. CT/CT cervical spine wo IV con IMPRESSION: Head: There is loss of parenchymal volume with associated ex vacuo enlargement of the atria of the lateral ventricles. Otherwise unremarkable examination. No evidence of acute territorial infarct or hemorrhage. ? Cervical spine: There is multilevel degenerative spondylosis of the cervical spine with slight anterolisthesis of C4 on C5 and C7 on T1 related to facet degenerative changes at these levels. No acute fracture and no posttraumatic spinal subluxation. Dictated By: Stalin Mcgarry MD Signed By: <Electronically signed by Stalin Mcgarry MD in OV> 03/14/22 1317 DD/ 1225 TD/TT:? Policy Manager: RH <Janett Shields NP - Last Filed: 03/14/22 16:47> Discharge Plan Discharge Clinical Impression: Fall <Janett Shields NP - Last Filed: 03/14/22 16:47> Patient Disposition: Home, Self-Care <Janett Shields NP - Last Filed: 03/14/22 16:47> Instructions: Fall Prevention for Older Adults (ED) <Janett Shields NP - Last Filed: 03/14/22 16:47> Additional Instructions: please follow-up with the primary care provider. Return to the ED immediately for any dizziness, nausea, vomiting, has stiffness, headache, rectal bleeding, vomiting blood, chest pain, headache, blood in urine, or any other concerning symptoms. [id number] Tylenol and Motrin could be ordered. <Janett Shields NP - Last Filed: 03/14/22 16:47> Prescriptions: No Action No Known Home Meds <Janett Shields NP - Last Filed: 03/14/22 16:47> Interventions: ED Discharge Assessment Last Done: 03/15/22 15:54 <Janett Shields NP - Last Filed: 03/14/22 16:47> Discharge Date/Time: 03/15/22 16:17 <Janett Shields NP - Last Filed: 03/14/22 16:47> Print Language: Greek <Janett Shields NP - Last Filed: 03/14/22 16:47>
[2022-03-14 13:40] VITALS: BP 161/74; PULSE 74; RESP 16; TEMP 36.6; O2SAT 98
[2022-03-14 14:51] LABS: Appearance Urine Clear; Color Urine Yellow; Glucose Urine UA Negative (Negative); Leukocyte Esterase Urine Negative (Negative); Nitrite Urine Negative (Negative); UMIC TRIGGER UACC YES; Urine Blood Negative (Negative); Urine Ketones 15 mg/dL (Negative); Urine Protein 100 (2+) mg/dL (Neg-Trace)
[2022-03-14 14:56] LABS: Bacteria Urine None Seen (None Seen); Hyaline Casts Urine 0-2 /LPF (0-2); RBC Urine 0-2 /HPF (0-2); Squamous Epithelial Cell Urine 0-2 /HPF (0-2); WBC Urine 0-5 /HPF (0-5)
[2022-03-14 15:05] LABS: COVID-19 Test Negative (Negative); IDNOW Serial# 08D9AD1C
[2022-03-14 15:45] VITALS: BP 173/68; PULSE 73; RESP 18; TEMP 36.7; O2SAT 98
--- NOTE | 2022-03-14 16:03 | MHC.CM.ED ---
Received case management consult. Mehdi came tot he ER due to a fall. Work up essentially negative. Physical therapy eval completed. Short term rehab is recommended. Attempted to meet with patient in regards to discharge planning. Patient is currently confused. Attempted to reach patient's HCP, [place], via telephone at [phone]. Left message requesting return telephone call. Continue to monitor for d/c needs.
--- NOTE | 2022-03-14 18:14 | PHA.MEDREC ---
Pharmacy Consult ? Medication Reconciliation Pharmacy has completed the medication reconciliation. TRIED CALLING JUANJOSE QUINN WITH NO ANSWER. CONTACTED EMERGENCY CONTACT AND SHE STATED PATIENT IS NOT ON ANY MEDICATIONS
[2022-03-15 02:52] VITALS: BP 149/66; PULSE 65; RESP 16; TEMP 36.6; O2SAT 98
--- NOTE | 2022-03-15 03:26 | PC.NURSE ---
Pt sleeping respirations regular.
--- NOTE | 2022-03-15 04:31 | PC.NURSE ---
Pt sleeping, respirations regular.
--- NOTE | 2022-03-15 06:15 | PC.NURSE ---
Pt sleeping respirations regular.
[2022-03-15 06:56] VITALS: BP 147/75; PULSE 76; RESP 16; O2SAT 98
--- NOTE | 2022-03-15 08:29 | PC.NURSE ---
Pt remains case management pt, sleeping at this time
[2022-03-15 09:15] VITALS: BP 146/73; PULSE 71; RESP 16; O2SAT 98
--- NOTE | 2022-03-15 10:23 | PC.NURSE ---
Pt was assisted to the bedside commode and a partial bed bath. Pt needs extensive assistance with transferring.
--- NOTE | 2022-03-15 10:44 | MHC.CM.ED ---
Patient remains in ER. Physical therapy recommending STR. Left another voicemail for patient's HCP, Sahara via telephone at [phone]. Patient will require DDS PASRR Level 2. Level 1 submitted by T/W. Patient hasn't received any Covid vaccines. She has been to [facility] in the past and did not have a good experience there. Anticipate pateint will be difficult to place due to not being vaccinated for Covid. Referral has been broadcasted to all facilities within 20 miles of patient's home that are contracted with patient's insurance: [facility], [facility] [place], [facility], [facility], [facility] and [facility]. Continue to monitor for d/c needs.
[2022-03-15 11:17] VITALS: BP 152/84; PULSE 70; RESP 16; O2SAT 97
[2022-03-15 13:38] VITALS: BP 173/120; PULSE 84; RESP 16; O2SAT 98
--- NOTE | 2022-03-15 14:20 | PC.NURSE ---
Pt watching tv. Ate entirety of breakfast and lunch. Offers no complaints, call larson within reach
--- NOTE | 2022-03-15 14:58 | MHC.CM.ED ---
Received return telephone call from patient's friend/HCP, Sahara. Patient's brother, Óscar and [id number] Aleksandra, have recently come back into patient's life. Sahara is requesting CM defer to Óscar and Aleksandra. Both can be reached via telephone at [phone] or [phone]. T/W met with patient in regards to discharge planning. Patient is more alert and oriented today. T/W discussed discharge planning and physical therapy's recommendation of short term rehab. Patient doesn't feel she needs STR at this time but is agreeable to VNA at home. T/W spoke with patient's [id number], Aleksandra via telephone at [phone]. Aleksandra and Óscar feel patient did very well at [facility] for STR. Aleksandra will speak to Óscar about discharge plan and will get back to case management. Continue to monitor for d/c needs.
--- NOTE | 2022-03-15 15:37 | MHC.CM.ED ---
Received return telephone call from patient's brother, Óscar. He is agreeable to patient being d/c'd home. He will be at [facility] at 4pm to transport patient home. Patient has [employer] for ins. Referral broadcasted in [facility] to see who can accept patient. Patient, Hailey LEWIS and Travis SHARMA aware. Continue to monitor for d/c needs.
--- NOTE | 2022-03-18 07:49 | MHC.CM.ED ---
Patient was d/cd' from the ER on 03/15. T/W was attempting to obtain a VNA for patient. Patient has [employer]. Referral was broadcasted. No agencies have accepted patient at this time.
== END 2022-03-15 16:17 | disposition home or self-care (01) ==
PROVIDERS: Nurse Practitioner Family; Emergency Provider Emergency Medicine Emergency Medical Services
DX: S00.03XA Contusion of scalp, initial encounter (principal); W17.89XA Other fall from one level to another, initial encounter; G80.9 Cerebral palsy, unspecified; Y93.9 Activity, unspecified; Y92.099 Unspecified place in other non-institutional residence as the place of occurrence of the external cause; Y99.9 Unspecified external cause status; Z20.822 Contact with and (suspected) exposure to COVID-19
CPT/HCPCS: 36415; 70450; 72125; 80053; 81001; 84484; 85025; 87635; 93005; 97162; 99284

== ENCOUNTER 2022-03-30 16:51 | Emergency (ER) | payer MEDICARE, SELFPAY ==
--- NOTE | ~2022-03-30 | XR_ITS ---
EXAMINATION: XR CHEST CLINICAL INFORMATION: Confusion COMPARISON: None TECHNIQUE: Frontal portable view of the chest was obtained. 5:46 PM FINDINGS: No significant abnormality is noted involving the heart, lungs, mediastinum, bony thorax or soft tissues. XR/XR chest 1V IMPRESSION: Unremarkable examination.
--- NOTE | ~2022-03-30 | CT_ITS ---
EXAMINATION: CT HEAD WITHOUT CONTRAST CLINICAL INFORMATION: Confusion. COMPARISON: Head CT scan dated 03/14/2022. TECHNIQUE: Contiguous axial imaging was performed from the skull base to vertex without intravenous administration of contrast. Coronal and sagittal reformatted images were obtained. This CT examination was performed using dose optimization techniques as appropriate, variously including the following: *Automated exposure control *Adjustment of mA and/or kV according to patient size (this includes techniques or standardized protocols for targeted exams where dose is matched to indication/reason for exam; i.e. extremities or head) *Use of iterative reconstruction technique DLP: 629 mGy-cm FINDINGS: There is mild widening of the cortical sulci and associated ventriculomegaly. Periventricular microvascular changes are seen. The lateral ventricles are symmetrical. The third and fourth ventricles are in their normal midline position. The basilar and prepontine cisterns are unremarkable. There is no acute intra or extracerebral abnormality. There is no mass effect or midline shift. Sections through the bony calvarium are unremarkable. The orbits are intact. The paranasal sinuses are clear. The mastoid air cells are clear. Moderate mid nasal septal deviation, apex of the right with moderate apical spur. CT/CT head/brain wo IV con IMPRESSION: No acute intracranial pathology.
[2022-03-30 17:04] VITALS: BP 113/66; BP 141/58; PULSE 78; PULSE 84; RESP 16; TEMP 37.1; O2SAT 97; O2SAT 98; BMI 14.5
--- NOTE | 2022-03-30 17:06 | ED.GENADULT ---
HPI - General Adult General Chief complaint: Altered Mental Status Stated complaint: CONFUSION/WANDERING PER ASSISTED LIVING STAFF Time Seen by Provider: 03/30/22 16:55 Source: patient and EMS Limitations: altered mental status History of Present Illness HPI narrative: This is a 76-year-old female who was sent in from her sister living for being confused. The patient seems to think that she was sent in because she has not been eating as much. She states her appetite has been good. She denies any headache, trouble speaking, chest pain, though she did have chest pain yesterday, shortness of breath, cough, abdominal pain, vomiting, diarrhea, constipation. Related Data Home Medications Medication Instructions Recorded Confirmed No Known Home Meds 03/14/22 03/14/22 Allergies Allergy/AdvReac Type Severity Reaction Status Date / Time No Known Allergies Allergy Unverified 12/08/20 00:11 Review of Systems Review of Systems: As per HPI Yes Unobtainable due to mental status (Limited due to confusion) PMFSH Past Medical History Medical History Cerebral palsy Social History Social History Alcohol intake: never Patient Tobacco Use Status: Never used Tobacco Advance Directives: Yes Advance Directives on File: Yes Advance Directives Date on File: 12/10/20 Physical Exam ED Vital Signs: Vital Signs - 24 hr 03/30/22 17:04 03/30/22 20:54 Temperature 98.7 F 98.6 F Pulse Rate 78 69 Respiratory Rate 16 18 Blood Pressure 141/58 H 188/67 H Pulse Oximetry 98 97 Oxygen Delivery Method Room Air BMI result Body Mass Index 14.5 Const General: no acute distress Orientation/consciousness: oriented to person, oriented to place, No oriented to time (Patient knows it is the end of March, cannot say the year.) and No patient oriented x3 HENMT Head: Yes normal to inspection General nose exam: Normal external nose present Mouth: moist mucous membranes Throat: Yes posterior oropharynx normal, Yes tonsils normal and Yes uvula midline Eyes Eyelids: Yes eyelids normal Conjunctivae: conjunctivae normal Pupils: Equal, round and reactive pupils present Neck Neck: Yes supple Resp Effort & Inspection: normal respiratory effort Auscultation: clear to auscultation bilaterally Cardio Rate: regular rate Rhythm: regular rhythm Heart sounds: S1 normal heart sound present, S2 normal heart sound present, no gallops, no murmurs and no rubs GI Inspection: No distended Palpation (GI): Soft to palpation and nontender Auscultation: normal bowel sounds Skin General skin exam: other (Warm and dry) Neuro General: oriented to person, oriented to place, No oriented to time (Patient knows it is the end of March, cannot say the year.), No patient oriented x3 and CN's II-XI intact bilaterally Cranial nerves: Yes Equal, round and reactive pupils present Extrem General: Yes no pedal edema Psych Affect: normal affect Attitude: cooperative Medical Decision Making Medical Decision Making MDM Narrative: Patient resides at a private [facility] facility and is taking care of by Sisters. We were able to get in touch with the sister in charge, who stated that the patient definitely has had a change in her behavior and last night had been up in the middle the night knocking on her door, was wearing a coat. Patient here in the ED also had gotten up with her coat on but did not have shoes and was confused about what she was doing. Patient appears to have progression of dementia. Medical workup is negative with negative head CT, labs at baseline, urinalysis negative, negative chest x-ray. Have patient may need short-term nursing facility placement versus [facility]. Case management was consulted and states that the patient pays to stay at the residence she is at and therefore it is not a simple as her simply needing a higher level of care. Recommend care team evaluation. Differential Diagnosis Differential Diagnoses: The differential diagnosis associated with the presentation includes Dementia, CVA, electrolyte derangement, sepsis, thyroid disorder Admission/Observation Consideration of admission/observation: Escalation of care including admission/observation considered Consult Healthcare Provider Management of the patient was discussed with: Behavioral Health Provider Lab Data MDM Lab Attestation statement: I reviewed the patient's lab results. 03/30/22 17:27 03/30/22 17:27 Labs: Lab Results 03/30/22 03/30/22 03/30/22 Range/Units 17:27 17:27 19:36 WBC 4.6 L (4.8-10.8) X10*3/uL RBC 3.90 L (4.20-5.50) X10*6/uL Hgb 11.7 L (12.0-16.0) g/dl Hct 35.8 L (37.0-47.0) % MCV 91.8 (80.0-98.0) fL MCH 30.0 (27.0-33.0) pg MCHC 32.7 (31.0-35.0) g/dl RDW 13.7 (11.0-16.0) % Plt Count 207 (160-400) X10*3/uL MPV 10.7 (9.4-12.3) fL Immature Gran % (Auto) 0.2 (0.0-0.4) % Neut % (Auto) 56.9 (45-73) % Lymph % (Auto) 27.9 (20-40) % Collin % (Auto) 13.5 H (2-11) % Eos % (Auto) 1.1 (0-4) % Baso % (Auto) 0.4 (0-2) % Lymph # (Auto) 1.3 (1.2-4.9) X10*3/uL Collin # (Auto) 0.6 (0.1-1.2) X10*3/uL Eos # (Auto) 0.1 (0.0-0.4) X10*3/uL Baso # (Auto) 0.0 (0.0-0.2) X10*3/uL Abs Immat Gran (auto) 0.01 (0.00-0.03) X10*3/uL Absolute Neuts (auto) 2.6 (2.0-8.3) x10*3/uL Absolute Nucleated RBC 0.000 (0.0-0.012) X10*3/uL Nucleated RBC % (auto) 0.0 (0.0-0.2) /100WBC Sodium 141 (135-145) mmol/L Potassium 4.2 (3.3-5.1) mmol/L Chloride 108 (96-108) mmol/L Carbon Dioxide 27 (22-29) mmol/L Anion Gap 10 L (12-20) BUN 25 H (9-16) mg/dL Creatinine 0.74 (0.5-1.4) mg/dL Estim Creat Clear Calc 41.0 Estimated GFR > 60 Random Glucose 116 H (60-115) mg/dL Calcium 8.7 (8.4-10.2) mg/dL Total Bilirubin 0.3 (0.0-1.0) mg/dL AST 23 (5-31) U/L ALT 18 (0-31) U/L Alkaline Phosphatase 60 (39-117) U/L Total Protein 5.6 L (6.5-8.0) g/dL Albumin 3.5 (3.5-5.0) g/dL TSH 0.81 (0.32-4.0) uIU/mL Urine Color Yellow Urine Appearance Clear Urine pH >= 9.0 (5.0-9.0) Ur Specific [place] 1.020 (1.005-1.025) Urine Protein 30 (1+) H (Neg-Trace) mg/dL Urine Glucose (UA) Negative (Negative) mg/dL Urine Ketones Negative (Negative) mg/dL Urine Blood Negative (Negative) Urine Nitrite Negative (Negative) Ur Leukocyte Esterase Negative (Negative) Urine RBC 0-2 (0-2) /HPF Urine WBC 0-5 (0-5) /HPF Ur Squamous Epith Cells 0-2 (0-2) /HPF Urine Bacteria None Seen (None Seen) Hyaline Casts 0-2 (0-2) /LPF Independent Interpretation I performed an independent interpretation of an: EKG Interpretation: Sinus rhythm with a rate of 81. LVH. No ST elevation or depression. Radiology Impression Discussion of test interpretation with radiology: I have reviewed the radiologist's reading. Radiologist Impression: CT brain: MPRESSION: No acute intracranial pathology. Chest x-ray: Unremarkable exam Chronic Conditions Patient?s care impacted by: Other (Dementia/cerebral palsy) Discharge Plan Discharge Clinical Impression: Altered mental status, Dementia Patient Disposition: Still a Patient Prescriptions: No Action No Known Home Meds
--- NOTE | 2022-03-30 17:09 | ECG_ITS ---
Test Reason : AMS Blood Pressure : / mmHG Vent. Rate : 081 BPM Atrial Rate : 081 BPM P-R Int : 146 ms QRS Dur : 078 ms QT Int : 374 ms P-R-T Axes : 086 060 060 degrees QTc Int : 434 ms Normal sinus rhythm Possible Left atrial enlargement Left ventricular hypertrophy ( Sokolow-Gloria , Romhilt-Kingsley ) Abnormal ECG When compared with ECG of 14-MAR-2022 11:47, No significant change was found Referred By: Emeka Bonilla Electronically Signed By:BOBBY MAGANA
[2022-03-30 17:32] LABS: MANUAL DIFF FLAG NO
[2022-03-30 18:01] LABS: Basophils Percent Auto 0.4 % (0-2); Eosinophils Absolute Auto 0.1 X10*3/uL (0.0-0.4); Eosinophils Percent Auto 1.1 % (0-4); Hematocrit 35.8 % (37.0-47.0); Hemoglobin 11.7 g/dl (12.0-16.0); Imm Gran Abs Auto 0.01 X10*3/uL (0.00-0.03); Imm Gran Pct Auto 0.2 % (0.0-0.4); Lymphocytes Absolute Auto 1.3 X10*3/uL (1.2-4.9); Lymphocytes Percent Auto 27.9 % (20-40); Mean Corpuscular HGB Conc 32.7 g/dl (31.0-35.0); Mean Corpuscular Volume 91.8 fL (80.0-98.0); Mean Platelet Volume 10.7 fL (9.4-12.3); Monocytes Absolute Auto 0.6 X10*3/uL (0.1-1.2); Monocytes Percent Auto 13.5 % (2-11); Neutrophils Absolute Auto 2.6 x10*3/uL (2.0-8.3); Neutrophils Percent Auto 56.9 % (45-73); Platelet Count 207 X10*3/uL (160-400); Red Cell Distribution Width 13.7 % (11.0-16.0); White Blood Count 4.6 X10*3/uL (4.8-10.8)
[2022-03-30 18:05] LABS: Alanine Aminotransferase 18 U/L (0-31); Albumin Level 3.5 g/dL (3.5-5.0); Anion Gap 10 (12-20); Aspartate Amino Transferase 23 U/L (5-31); Bilirubin Total 0.3 mg/dL (0.0-1.0); Blood Urea Nitrogen 25 mg/dL (9-16); Calcium 8.7 mg/dL (8.4-10.2); Carbon Dioxide 27 mmol/L (22-29); Chloride 108 mmol/L (96-108); Estimated Glomerular Filt Rate > 60; Glucose Random 116 mg/dL (60-115); Potassium 4.2 mmol/L (3.3-5.1); Sodium 141 mmol/L (135-145); Total Protein 5.6 g/dL (6.5-8.0)
[2022-03-30 18:22] LABS: Alkaline Phosphatase 60 U/L (39-117); TSH reflex Free T4 0.81 uIU/mL (0.32-4.0)
[2022-03-30 19:45] LABS: Appearance Urine Clear; Color Urine Yellow; Glucose Urine UA Negative (Negative); Leukocyte Esterase Urine Negative (Negative); Nitrite Urine Negative (Negative); PH >= 9.0 (5.0-9.0); UMIC TRIGGER UACC YES; Urine Blood Negative (Negative); Urine Ketones Negative (Negative); Urine Protein 30 (1+) mg/dL (Neg-Trace)
[2022-03-30 19:50] LABS: Bacteria Urine None Seen (None Seen); Hyaline Casts Urine 0-2 /LPF (0-2); RBC Urine 0-2 /HPF (0-2); Squamous Epithelial Cell Urine 0-2 /HPF (0-2); WBC Urine 0-5 /HPF (0-5)
[2022-03-30 20:54] VITALS: BP 188/67; PULSE 69; RESP 18; TEMP 37; O2SAT 97
[2022-03-30 22:26] VITALS: BP 182/66; PULSE 70; RESP 16; TEMP 36.7; O2SAT 100
--- NOTE | 2022-03-30 22:57 | MHC.CM.ED ---
Addendum entered by Divya Ferrell 03/30/22 23:09: Dr. Bonilla has consulted CARE TEAM. Awaiting PT order. Original Note: CM met with patient at the request of Dr. Bonilla. Pt to ED from [facility] due to increasing confusion and wandering in facility. Pt is a very poor historian, attempting to answer CM questions, but unable to answer in cohesive manner. PCP is unknown. Pt tells me she uses a walker. Has a brother, no contact information on record. Contact is Sister Edyta Nunez ([phone]). Lyndon LEWIS did speak with her. She told him pt has had increasing confusion. Has a brother. CM attempted to contact Sister Edyta, her mailbox was full. Will need to try again in the morning, as it was already 10 pm. HCP on file. Very difficult to read. HCP Deirdre Bowers- unsure of telephone number secondary to very poor copy. Pt cannot tell me the HCP name or any contact information. Pt has celebral palsy. Pt will have PT eval in the morning. Referrals placed with facilities that contract with [employer]. CM called [facility]. Must call back between 8-4pm. Will need to call in the morning to obtain information. D/C plan: STR.
--- NOTE | 2022-03-30 23:08 | PC.NURSE ---
Spoke to and was told that pt lives independently. Neighbors within the complex have made several complaints about her behavior in the last 6 mos neighbors/contacts state that she is trying to enter others homes and being very confused, falling asleep in hallways and chairs to determine [facility] bedsearch vs SNF contact listed as sister is not biological sister, rather sister by willy
--- NOTE | 2022-03-30 23:22 | PC.NURSE ---
assumed care of patient at 2300 - confirmed with patients brother that she in fact does have cerebral palsy, uses walker at baseline. per patient is to be a [facility] psych bedsearch
[2022-03-30 23:43] LABS: COVID-19 Test Negative (Negative); IDNOW Serial# BCCEAD1C
[2022-03-31 00:13] VITALS: BP 178/78; PULSE 66; RESP 12; TEMP 36.9; O2SAT 99
--- NOTE | 2022-03-31 03:36 | PC.NURSE ---
patient sleeping comfortably on stretcher. moved into hospital bed. 1:[address] because patient is a section 12 [facility] bed search. patient confused, occasionally getting out of bed, exit seeking
[2022-03-31 08:38] VITALS: BP 179/64; PULSE 63; RESP 18; TEMP 36.4; O2SAT 100
--- NOTE | 2022-03-31 09:01 | MHC.EDTECH ---
Removed patient purewick per request. Assisted patient from bed to commode and back to bed. Assisted patient with personal hygeine. Sangita Weinberg
--- NOTE | 2022-03-31 09:42 | MHC.CM.ED ---
Per Care team, patient is a [facility] bed search. No current CM needs. Will reconsult if needed.
--- NOTE | 2022-03-31 10:15 | PHA.MEDREC ---
Pharmacy Consult ? Medication Reconciliation Pharmacy has completed the medication reconciliation.
--- NOTE | 2022-03-31 13:03 | PC.NURSE ---
patient awake/alert to self only, denies pain/discomfort, sitter at bedside, fall precautions in place, pts vitals have been stable, call larson within reach, will continue to monitor
--- NOTE | 2022-03-31 13:17 | PC.NURSE ---
this nurse called molly crawford pts sister who stated that they use [facility] [address] but the patient does not take medications, the pharmacist was notified and stated he had attempted to get information himself from a brother and sister who both stated that she does not take any medications.
--- NOTE | 2022-03-31 13:26 | PC.NURSE ---
This leader writer attempted to administer the Christiana Cognitive Assessment (MoCA) screen on this date. Pt initially agreeable, became easily frustrated with first tasks. Pt required instructions to be repeated multiple times as she stated I forgot or I don't understand what you want from me, I'm not good at puzzles . Pt then refused to continue with screen . Pt appeared to have decreased insight, safety and judgment, will benefit from continued cognitive assessment and supervision for safety.
[2022-03-31 16:00] VITALS: BP 147/60; PULSE 65; RESP 16; TEMP 36.8; O2SAT 98
--- NOTE | 2022-03-31 16:03 | MHC.EDTECH ---
THIS PCT ASSUMED CARE OF PATIENT AT 1600 ,PATIENT VITALS SIGN TAKEN ,THIS PCT IS ASSIGN TO PROVIDE 1:1 WITH PATIENT ,PATIENT AWAKE IN BED WATCHING TELEVISION .
--- NOTE | 2022-03-31 18:24 | PC.NURSE ---
patient awake/alert to self, watching tv, dinner provided, sitter at bedside, fall precautions in place, pt has been in good spirits throughout the day, call larson within reach, will continue to monitor
--- NOTE | 2022-03-31 19:02 | MHC.EDTECH ---
patient had dinner ,ate 100 % of meal ,drank 480 ml fluids ,patient was assisted to walk around in room ,sat in chair for a few minutes then back to bed .
--- NOTE | 2022-03-31 19:30 | MHC.EDTECH ---
AFTER DINNER PATIENT WAS ASSISTED UNTO BED SIDE COMMODE ,VOIDED LARGE AMOUNT OF URINE ,SPONGE BATH GIVEN ,AND BEDDING CHANGE ,PATIENT BACK IN BED TOOK A NAP .
--- NOTE | 2022-03-31 19:43 | PC.NURSE ---
Assumed care of pt. at 1900. Pt. resting in bed at this time, watching tv with no apparent distress. 1:1 sitter is at bedside. Will continue to monitor.
--- NOTE | 2022-03-31 20:53 | MHC.CM.ED ---
Addendum entered by Divya Ferrell 04/01/22 18:54: CM spoke with Aleksandra and Óscar on speaker phone. They are aware of patient decline and last saw at home 03/30. Aleksandra tells CM that she spoke with Taina (HCP) today and she is willing to continue being HCP and will work with the family for LTC placement. CM has not be able to reach Taina regarding HCP being invoked. CM reviewed Plan of Care and process going forward with application. Aware of PT recommendations and Psych consult. Aware that HCP is invoke. Aleksandra has access to financial records. Aware that HCP will need to be involved. Aleksandra given Financial services contact information. Will call tomorrow. CM faxed patient information/face sheet to financial services. Aleksandra aware that LTC beds are scarce and that payor source is necessary for facilities. Will referral locally. [facility] and [facility] requested. Aleksandra aware that [facility] presently has Covid. Family has CM contact information. CM will follow for discharge planning. Addendum entered by Divya Ferrell 04/01/22 18:23: Psych assessment-Alzeimer's dementia. No need for psych admission. Pt does not have capacity to make medical decisions. HCP has been INVOKED. HCP/friend Deirdre Bowers ([facility])([phone]). Cannot live independently safely. Needs 24 hour supervision. PT recommending increased level of care d/t confusion and that patient is close to her functional baseline. Message left with HCP and brother/sister in law Óscar/Aleksandra ([phone]) with request to return call to discuss safe discharge planning for patient. Original Note: Awaiting psych evaluation. Expect 04/01. Received a telephone call form Aaron at [facility]. States a report was filed with [facility] on 03/30 and Aaron went to patient's apartment to assess the situation. Upon arrival he noted patient confusion and staff concerns that patient has been wandering both inside and outside of the building, with concerns for her safety. Aaron tell CM that he called the ambulance. Aaron was calling for an update and patient disposition. Explained that CM was waiting for the psych evaluation. CARE team note recommends both inpatient psych for medication/diagnosis and LTC. Awaiting PT input. Aaron requests phone call with disposition at [phone] ext [phone].
--- NOTE | 2022-03-31 21:15 | MHC.EDTECH ---
PATIENT UP FROM NAP TOOK PATIENT FOR A LONG WALK ,BACK IN ROOM ICE CREAM AND CRANBERRY JUICE GIVEN FOR SNACK .
[2022-03-31 21:32] VITALS: BP 157/53; PULSE 87; RESP 16; TEMP 36.3; O2SAT 97
--- NOTE | 2022-03-31 21:34 | PC.NURSE ---
Pt. up and out of bed, becoming increasingly agitated. Stated she wanted to go to her own bathroom . Wanted to know where her walker was . Pt. does have a walker in room, however, she stated she had a different perfectly good walker . Pt. didn't want help walking. Stated not to touch her and that if she falls on her face then she falls on her face . Pt. was offered to walk, offered food. Pt. declined medication. Pt. did eventually agree to sit back down and eat some icecream. Pt. more calm and cooperative after her snack.
--- NOTE | 2022-03-31 21:51 | MHC.EDTECH ---
patient asked to use bedside commode ,was assisted to commode, voided large amount of urine ,francis care given ,patient back in bed ,vitals sign taken ,patient is calm and watching television .
--- NOTE | 2022-03-31 23:33 | PC.NURSE ---
medicated per May, notified DEBBIE Trotter
--- NOTE | 2022-03-31 23:37 | PC.NURSE ---
pt spit out pill, pt wasted and notified DEBBIE Trotter
--- NOTE | 2022-04-01 03:17 | PC.NURSE ---
Pt. currently sleeping, respirations even and unlabored, no distress noted. 1:1 sitter remains at bedside. Will continue to monitor.
[2022-04-01 04:56] VITALS: BP 131/76; PULSE 69; RESP 17; TEMP 36.8; O2SAT 95
--- NOTE | 2022-04-01 04:58 | MHC.EDTECH ---
pt used the bed side commode and back to bed and had a ham sandwich and cranberry juice vitals were taken pt is now sleeping
--- NOTE | 2022-04-01 06:27 | PC.NURSE ---
Pt. sleeping, respirations even and unlabored. No distress noted. 1:1 sitter remains at bedside. Will continue to monitor.
[2022-04-01 07:28] VITALS: BP 150/63; PULSE 77; RESP 16; O2SAT 97
--- NOTE | 2022-04-01 10:49 | MHC.CARE ---
Susi Daley, patients manager home improvement with [facility] [phone] calls with further info re: patient. She reports that patient has been sundowning for roughly three months. At first patient did not know the time of day, she was aware of other events in the world/ location. She is not sleeping much, in general or consistently sleeping. She gets up with no awareness to the time of day, and will leave her apartment but then cannot find her way back. Susi S additionally states patient has mobility issues, she has fallen a few times. Patient has been seen trying to get back into the building but seemingly not able or not knowing how to use the vogt fob for entrance. It is a three story building, and patient will often not seem to know which floor she lives on. She has been found in the building's lobby asleep on the couch in the main area. She has not had a PCP in some time, and most recently her former Neurologist at [facility] on [facility] retired but had been acting as a sort of PCP for her. They are trying to get her in with that neurologists replacement, Dr Patel. Caller, Susi reports that a few weeks ago Autumn seemed to have some awareness that something was happening to her mind and body but struggled to find words and articulate her experience. Susi reports that patient is malnourished despite meals being delivered to her via Meals [employer] Whe[employer]. These meals have been dated so that Elder Care and patient's brother and sister in law can have some sense of awareness of what patient is eating and how often she is eating. Susi reports that Autumn often requires coaching when it comes to eating, given concern that she will not eat otherwise. Susi reports that Autumn can get agitated and frustrated easily, will demand a new agency support her orther than [facility]. Additional concern is that patient's bed is very high off the ground and she uses step stool to get into and out of bed and Susi concerned about risk of fall. She also is poor with managing access and ease of access to her walker, often leaving it on the other side of the room and not using the walker's brakes well. Her brother John and his Aleksandra are involved since the fall. John and Autumn had been estranged prior to this. Artie aide with housing keeping and monitoring how much food Autumn has eaten. Susi Daley is seeking a call back following psych consult [phone].
[2022-04-01 12:45] VITALS: BP 129/61; PULSE 68; TEMP 36.4; O2SAT 100
--- NOTE | 2022-04-01 14:59 | PC.NURSE ---
CAMERA PLACED IN PT ROOM FOR SAFETY, REMAINS A ANI BED SEARCH
--- NOTE | 2022-04-01 15:08 | PC.NURSE ---
Pt seen this date for individual OT tx. Pt presents pleasantly confused and receptive to conversation with this newspaper writer regarding personal leisure interests. Pt reports being an avid reader. Pt provided with independent reading material as well as coloring pages with positive courtesy clerk. Pts 1:1 sitter reports pt has maintained stable cheerful mood this day.
--- NOTE | 2022-04-01 15:28 | PM.PSYCN ---
History of Present Illness Date of Service: 04/01/2022 Chief Complaint: CONFUSION/WANDERING PER ASSISTED LIVING STAFF Reason for Consult: wondering Discussed with referring provider: Yes HPI Narrative: Ms. Alonso is a 76 y/o woman brought via EMS from senior housing due to concerns of pt wondering on streets, knocking on neighbors,seemingly confused. This has been going on for several months. In the ED- cbc shows anemia, leukopenia. CMP elevated BUN, normal creatinine 0.78, creatinine clearance of 41. UA does not show infection, positive for protein. Head CT shows atrophy and periventricular microvascular changes. Pt seen today. Pt pleasant. Pt reports she is here a place where you can read and eat. Pt is unsure as to why she is here, which she does not identify as a hospital nor can tell the name of facility or city. Pt does states she comes here often. Pt not oriented to month, or situation. She does state that it is 2022. Collateral information gathered from strategic account manager from her apartment building who reports increasing concern about pt wondering and her ability to live alone independently. She denies depression or SI/HI. No signs of psychosis. [facility] Medical History Cerebral palsy Diagnostics Vital Signs (24Hr): Vital Signs - 24 hr 03/31/22 16:00 03/31/22 21:32 04/01/22 04:56 Temperature 98.2 F 97.4 F 98.3 F Pulse Rate 65 87 69 Respiratory Rate 16 16 17 Blood Pressure 147/60 H 157/53 H 131/76 Pulse Oximetry 98 97 95 Oxygen Delivery Method Room Air Room Air Room Air 04/01/22 07:28 04/01/22 12:45 Temperature 97.6 F Pulse Rate 77 68 Respiratory Rate 16 Blood Pressure 150/63 H 129/61 Pulse Oximetry 97 100 Oxygen Delivery Method Room Air Room Air BMI result Body Mass Index 14.5 Labs 03/30/22 17:27 03/30/22 17:27 Labs: Laboratory Results - last 48 hr 03/30/22 03/30/22 03/30/22 17:27 17:27 19:36 WBC 4.6 L RBC 3.90 L Hgb 11.7 L Hct 35.8 L MCV 91.8 MCH 30.0 MCHC 32.7 RDW 13.7 Plt Count 207 MPV 10.7 Immature Gran % (Auto) 0.2 Neut % (Auto) 56.9 Lymph % (Auto) 27.9 Riley % (Auto) 13.5 H Eos % (Auto) 1.1 Baso % (Auto) 0.4 Lymph # (Auto) 1.3 Riley # (Auto) 0.6 Eos # (Auto) 0.1 Baso # (Auto) 0.0 Abs Immat Gran (auto) 0.01 Absolute Neuts (auto) 2.6 Absolute Nucleated RBC 0.000 Nucleated RBC % (auto) 0.0 Sodium 141 Potassium 4.2 Chloride 108 Carbon Dioxide 27 Anion Gap 10 L BUN 25 H Creatinine 0.74 Estim Creat Clear Calc 41.0 Estimated GFR > 60 Random Glucose 116 H Calcium 8.7 Total Bilirubin 0.3 AST 23 ALT 18 Alkaline Phosphatase 60 Total Protein 5.6 L Albumin 3.5 TSH 0.81 Urine Color Yellow Urine Appearance Clear Urine pH >= 9.0 Ur Specific [place] 1.020 Urine Protein 30 (1+) H Urine Glucose (UA) Negative Urine Ketones Negative Urine Blood Negative Urine Nitrite Negative Ur Leukocyte Esterase Negative Urine RBC 0-2 Urine WBC 0-5 Ur Squamous Epith Cells 0-2 Urine Bacteria None Seen Hyaline Casts 0-2 COVID-19 (JADE) COVID-19 Clin Com 03/30/22 23:23 WBC RBC Hgb Hct MCV MCH MCHC RDW Plt Count MPV Immature Gran % (Auto) Neut % (Auto) Lymph % (Auto) Riley % (Auto) Eos % (Auto) Baso % (Auto) Lymph # (Auto) Riley # (Auto) Eos # (Auto) Baso # (Auto) Abs Immat Gran (auto) Absolute Neuts (auto) Absolute Nucleated RBC Nucleated RBC % (auto) Sodium Potassium Chloride Carbon Dioxide Anion Gap BUN Creatinine Estim Creat Clear Calc Estimated GFR Random Glucose Calcium Total Bilirubin AST ALT Alkaline Phosphatase Total Protein Albumin TSH Urine Color Urine Appearance Urine pH Ur Specific [place] Urine Protein Urine Glucose (UA) Urine Ketones Urine Blood Urine Nitrite Ur Leukocyte Esterase Urine RBC Urine WBC Ur Squamous Epith Cells Urine Bacteria Hyaline Casts COVID-19 (JADE) Negative COVID-19 Clin Com See Note Imaging Radiology Impressions: ITS Impressions Head CT 03/30/22 17:42 IMPRESSION: No acute intracranial pathology. Chest X-Ray 03/30/22 17:53 IMPRESSION: Unremarkable examination. Mental Status Exam Mental Status Exam Narrative: Appearance: pt thin, wearing hospital gown, in NAD Behavior: pleasant Speech: clear, difficulty finding words noted, spontaneous TP: disorganized with some derailment TC: feeling comfortable here Mood: good Affect: congruent, brightens up, non labile SI: none HI: none Aggression: none towards self or others VH/AH: none Delusions: none, only comfabulations Insight/judgment: impaired x 2 Memory/cog: alert, not oriented to place, situation, month, only year. unable to complete MOCA as she couldn't answer questions. Medications Medications Current Medications Pharmacy Consult (Consult Rx Perform Med Rec) 1 each MISCELLANE ONCE PRN PRN Reason: Consult order Pharmacy Consult (Consult Rx Perform Med Rec) 1 each MISCELLANE ONCE PRN PRN Reason: Consult order Allergies Allergies Allergy/AdvReac Type Severity Reaction Status Date / Time No Known Allergies Allergy Unverified 12/08/20 00:11 Assessment & Plan Assessment & Plan (1) Alzheimer's dementia: Status: Acute Code(s): G30.9 - Alzheimer's disease, unspecified; F02.80 - Dementia in other diseases classified elsewhere, unspecified severity, without behavioral disturbance, psychotic disturbance, mood disturbance, and anxiety Plan Ms. alonso is a 76 y/o woman brought via EMS from senior housing due to increasing concerns about her ability to safely live alone in the community. In the ED, pt presents with severe cognitive impairments including not oriented to situation, place, difficulties with language fluency. Unable to answer most questions on MOCA and clearly severely impaired with severe impairments in recall and short term memory. PLAN 1. NO need for inpatient psych admission 2. PT DOES NOT HAVE CAPACITY TO MAKE MEDICAL DECISIONS- HCP should be invoked.Capacity not expected to be regained. 3. Pt not safe to live independently and may required 24hr supervision. Total time managing care of this patient today ____ minutes.
[2022-04-01 18:09] VITALS: BP 162/54; PULSE 77; RESP 20; TEMP 36.5; O2SAT 96
--- NOTE | 2022-04-01 19:15 | MHC.CM.ED ---
Referrals made for LTC. [facility].
--- NOTE | 2022-04-01 21:58 | MHC.CM.ED ---
ED provider aware that pt is no longer a bed search. HCP invoked. Needs LTC. Needs MH fer. Family and HCP referred to [facility] for assistance.Referrals placed. Will be difficult to place d/t lack of LTC beds and waiting for MH application process.
--- NOTE | 2022-04-02 04:13 | PC.NURSE ---
pt sleeping at this time, will hold off on vitals until pt is more awake. Pt was difficult to get to sleep and attempts to get out of bed when awake
[2022-04-02 05:12] VITALS: BP 159/59; PULSE 62; RESP 13; O2SAT 96
[2022-04-02 07:02] VITALS: BP 181/67; PULSE 70; RESP 20; O2SAT 99
--- NOTE | 2022-04-02 07:39 | MHC.EDTECH ---
pt was found soiled in bed when obtaining morning vitals. pt is now cleaned and dry, with fresh linen given, and blankets provided. no signs of distress, pt appears comfortable at this time.
--- NOTE | 2022-04-02 08:21 | PC.NURSE ---
patient sleeping at this time. chest rise and fall equal and unlabored. bed in lowest locked position. camera in place for safety
[2022-04-02 10:23] VITALS: BP 185/83; PULSE 73; RESP 13; TEMP 36.6; O2SAT 99
--- NOTE | 2022-04-02 10:31 | MHC.EDTECH ---
pt was left sleeping this morning do to lack of rest from the night prior. pt has just woken up on own, breakfast tray was set up in front of pt and she is now currently eating.
--- NOTE | 2022-04-02 11:18 | MHC.EDTECH ---
after finished with breakfast, the pt was 1-assisted to commode, cleaned, and placed back in bed comfortably with multiple blankets given and light dimmed. pt is now resting comfortably.
--- NOTE | 2022-04-02 13:45 | MHC.CM.ED ---
Received return telephone call from Syed, patient's HCP. T/W provided clinical updates. Syed is willing to remain as patient's HCP and work with brother for plan of care. Artie are in the process of obtaining the necessary paperwork to obtain [facility] for patient. Continue to monitor for d/c needs.
[2022-04-02 14:18] VITALS: BP 149/62; PULSE 73; RESP 13; O2SAT 100
[2022-04-02 16:02] VITALS: BP 134/57; PULSE 82; RESP 18; TEMP 36.5; O2SAT 97
--- NOTE | 2022-04-02 20:33 | MHC.EDTECH ---
pt was assisted to the commode and back to bed vitals were taken
[2022-04-02 20:50] VITALS: BP 146/56; PULSE 86; RESP 22; TEMP 36.6; O2SAT 98
--- NOTE | 2022-04-02 22:55 | PC.NURSE ---
Assumed care of patient at approx. 1900. Pt. is A&O*3, appropriate, occasionally wifty/confused activity, follows commands. HOLLIDAY weakly and with hesitancy. No behavioral or verbal indicator of pain. _edema, +pulses, afebrile. No IV access/not required. +BS*4, flat, NT/ND. Patient voids with assist of 1 to commode. Occassional urge incontinence noted. Skin C/D/I, no breaks noted. Immediate care needs addressed. Encouraged to use call larson. Currently in bed resting.
--- NOTE | 2022-04-03 00:21 | MHC.EDTECH ---
pt is still awake, i offered her a sandwich and something to drink, so now pt is gona try to rest
[2022-04-03] MEDS: traZODone HCL 25 MG HALFTAB PO (00:48)
--- NOTE | 2022-04-03 03:24 | MHC.EDTECH ---
pt is sleeping comfortable
[2022-04-03 05:55] VITALS: BP 121/76; PULSE 88; RESP 17; TEMP 36.2; O2SAT 96
--- NOTE | 2022-04-03 06:07 | MHC.EDTECH ---
pt used the commode and vitals were taken back to bed
--- NOTE | 2022-04-03 09:22 | MHC.CM.ED ---
Patient transferred to ER overflow unit. Received telephone call from Amandeep at [facility]. Clinical updates provided via telephone. Continue to monitor for d/c needs.
[2022-04-03 09:28] VITALS: BP 118/36; PULSE 81; RESP 12; O2SAT 98
--- NOTE | 2022-04-03 09:29 | MHC.EDTECH ---
patient clean and reposition in bed .
--- NOTE | 2022-04-03 10:03 | MHC.CM.ED ---
Addendum entered by Nikia Berrios 04/03/22 13:55: [facility] [place] will re-eval on Wednesday. Addendum entered by Nikia Berrios 04/03/22 12:51: Spoke with Melia at [place] [facility]. Melia will review clinical and get back to . Unlikely to have a bed before Wednesday. Original Note: Patient remains in ER overflow. Received telephone call from patient's [id number], Aleksandra. Patient has enough funds to pay for 2 months of LTC at a shelter facility. [facility] information. Continue to monitor for d/c needs.
--- NOTE | 2022-04-03 10:22 | PC.NURSE ---
patient sleeping, chest rise and fall equal and unlabored. using bedside commode with 1 assist. call larson within reach.
--- NOTE | 2022-04-03 12:06 | PC.NURSE ---
visitor at the bedside. patient awake watching tv
[2022-04-03 14:16] VITALS: BP 131/54; PULSE 80; RESP 12; TEMP 37.1; O2SAT 98
--- NOTE | 2022-04-03 19:36 | PC.NURSE ---
assumed care of patient at 1900 - patient resting comfortably on stretcher. ate 80% of dinner. patient able to make it known when she needs to urinate, up to bedside commode. needs met, will continue to monitor
--- NOTE | 2022-04-03 21:10 | PC.NURSE ---
patient cleaned up and linens changed
[2022-04-03 22:29] VITALS: BP 156/67; PULSE 74; TEMP 36.6; O2SAT 98
--- NOTE | 2022-04-04 00:13 | PC.NURSE ---
purewick placed on patient for multiple episodes of incontinence
[2022-04-04 08:18] VITALS: BP 162/66; PULSE 68; RESP 14; TEMP 36.8; O2SAT 99
[2022-04-04 15:29] VITALS: BP 154/69; PULSE 74; O2SAT 98
[2022-04-04 22:18] VITALS: BP 173/84; PULSE 74; O2SAT 99
--- NOTE | 2022-04-05 00:13 | MHC.EDTECH ---
PT 1X assisted with repositioning in bed. PT purewick checked for placement. PT given warm blankets and call larson placed in reach
--- NOTE | 2022-04-05 04:03 | MHC.EDTECH ---
PT Purwick canister emptied AT 900CC OUTPUT OF URINE
[2022-04-05 06:04] VITALS: BP 154/113; PULSE 65; RESP 14; TEMP 36.3; O2SAT 99
--- NOTE | 2022-04-05 06:05 | MHC.EDTECH ---
PT purewick repositioned after repositioning PT. PT given warm blankets and call larson placed in reach
--- NOTE | 2022-04-05 08:54 | MHC.CM.ED ---
Review of ED CM notes and referrals: pt has an activated HCP and will need LTC in a secure setting. She does have funds to cover 2 months of care. [facility] in [place] has shown interest and will follow up on Wednesday, 04/06. Pt's HCP and family are working on [employer] application submission in anticipation of pt's LTC needs. ED CM to follow.
--- NOTE | 2022-04-05 11:55 | MHC.EDTECH ---
changed freddy @ 10:00, patient used the commode and went back into bed
[2022-04-05 16:00] VITALS: BP 154/66; PULSE 80; RESP 16; TEMP 36.5; O2SAT 97
--- NOTE | 2022-04-05 16:15 | MHC.EDTECH ---
this pct assumed care of pt at 1500 ,vitals sign taken ,pt health care proxy here for visit ,pt in good sprits ,smiling and conversating with staff and proxey .
--- NOTE | 2022-04-05 19:45 | MHC.EDTECH ---
PATIENT AT 100 % OF TURKEY ,MASHED POTATO WITH GRAVY AND CORN ,DRANK 360 ML JUICE AND MILK ,AFTER DINNER ,PATIENT WAS GIVEN A COMPLETE SPONGE BATH ,HAIR WASH ,TEETH BRUSH ,LOTION AND POWDER APPLY ,SKIN INTACK ,,SOCK AND ROJAS CHANGE ALSO BEDDING ,PATIENT BEEN QUIET ALL SHIFT ,WATCHING TELEVISION ,WAS INCONIENT 1 TIME,PUREWICK CHANGE ,ALSO PUREWICK EMPTY 300 ML ,FRESH PITCHER WATER WITH ICE GIVEN ,BOX TISSUE , AND SMALL TRASH BACK ATTACHED TO BEDSIDE TABLE .
[2022-04-05 20:00] VITALS: BP 158/70; PULSE 72; RESP 16; TEMP 36.3; O2SAT 97
--- NOTE | 2022-04-05 22:22 | MHC.EDTECH ---
PATIENT AWAKE WATCHING TELEVISION ,AND DRY ,I OFFER SNACK ,BUT PATIENT SAID SHE FULL .
--- NOTE | 2022-04-05 22:33 | MHC.EDTECH ---
PATIENT CHANGE HER MIND AND IS HAVING ICE CREAM FOR SNACK .
[2022-04-06 10:49] VITALS: BP 155/65; PULSE 78; RESP 16; TEMP 36.6; O2SAT 100
--- NOTE | 2022-04-06 11:57 | PC.NURSE ---
pts brother and ART at bedside. requesting to take pts belongings home to wash them for pt. belongings will be sent home with family to be cleaned then returned.
--- NOTE | 2022-04-06 12:14 | PC.NURSE ---
pt incontinent of urine, periwick was out of place. linens changed and pt placed on bed magallon with + urine output.
--- NOTE | 2022-04-06 12:36 | PC.NURSE ---
spiritual services at bedside to speak with pt for comfort needs.
[2022-04-06 18:46] VITALS: BP 182/79; PULSE 79; RESP 18; TEMP 36.8; O2SAT 99
[2022-04-07 05:58] VITALS: BP 179/80; PULSE 66; RESP 16; TEMP 36.6; O2SAT 97
[2022-04-07 09:12] VITALS: BP 173/77; PULSE 63; TEMP 36.6; O2SAT 100
--- NOTE | 2022-04-07 10:25 | PC.NURSE ---
pt at bedside
--- NOTE | 2022-04-07 14:13 | MHC.CM.ED ---
Addendum entered by Nikia Berrios 04/07/22 15:52: [facility] has obtained insurance auth. Patient can leave on 04/08 at 10am. Cesar DIAMOND booked. [facility] with chart. Patient, [id number] AleksandraXi RN, and Angela HARGROVE aware. Original Note: Patient remains in ER overflow. Repeat physical therapy eval completed. Sent to [facility] via [facility]. JACKYCarlita is in the process of trying to obtain insurance auth. Continue to monitor for d/c needs.
--- NOTE | 2022-04-07 14:19 | PC.NURSE ---
identification and records commander in to visit pt. pt prabhjot assist to comode today. ate 100% of lunch. aware of plan of care but does get confused at times. easily re directable. PT at bedside this am and plan is for STR placement.
--- NOTE | 2022-04-07 18:54 | PC.NURSE ---
pt continues to eat dinner independently
[2022-04-07 19:13] VITALS: BP 197/93; PULSE 78; RESP 16; TEMP 36.6; O2SAT 100
[2022-04-07 20:00] LABS: COVID-19 Test Negative (Negative); IDNOW Serial# 16C4AD1C
--- NOTE | 2022-04-07 20:09 | PC.NURSE ---
Assumed care of pt. at 1900. Pt. up to use commode and assisted back to bed after urinating. Pt. has no complaints at this time. Pt. resting quietly in bed. Will continue to monitor.
[2022-04-07 22:18] VITALS: BP 158/65; PULSE 84; RESP 16; TEMP 36.3; O2SAT 99
--- NOTE | 2022-04-08 00:31 | PC.NURSE ---
Pt. awake and trying to get out of bed. Pt. requested assistance onto the commode. Put pt. on commode. Pt. had already been incontinent of urine. Pt. voided additional small amount into commode. Bedding changed and clean brown placed on pt. Pt. assisted back into bed and provided with cranberry juice per her request.
--- NOTE | 2022-04-08 02:46 | PC.NURSE ---
Pt. sleeping in bed, respirations even and unlabored. No distress noted. Will continue to monitor.
--- NOTE | 2022-04-08 03:56 | PC.NURSE ---
Pt. up to use commode. Bedding was still dry. Assisted pt. to commode and back to bed. Pt. requested a small snack. Provided with vanita oliver.
[2022-04-08 08:06] VITALS: BP 160/69; PULSE 88; RESP 16; TEMP 36.8; O2SAT 96
--- NOTE | 2022-04-08 09:38 | PC.NURSE ---
Report called and given to [facility] staff, DEBBIE Bryant.
== END 2022-04-08 10:24 | disposition skilled nursing facility (03) ==
PROVIDERS: Nurse Practitioner Family; Emergency Provider Emergency Medicine
DX: R41.82 Altered mental status, unspecified (principal); G30.9 Alzheimer's disease, unspecified; F02.80 Dementia in other diseases classified elsewhere, unspecified severity, without behavioral disturbance, psychotic disturbance, mood disturbance, and anxiety; G80.9 Cerebral palsy, unspecified; Z20.822 Contact with and (suspected) exposure to COVID-19
CPT/HCPCS: 36415; 70450; 71045; 80053; 81001; 84443; 85025; 87635; 93005; 97161; 99285; S9485